=== PATIENT | female | born 1980 | race Caucasian/White ===

== ENCOUNTER 2017-01-29 15:58 | Outpatient (CLI) | payer OTHER ==
--- NOTE | 2017-01-29 17:07 | Non Stress Test Report ---
Non Stress Test Datetime Report Generated by CPN: 01/29/2017 17:06 DEMOGRAPHIC EGA NST: 38.3 INDICATION Indication for Study: Ordered by Provider MONITORING Monitor Explained: Monitor Explained; Test Explained; Patient Verbalized Understanding Time on Monitor: 01/29/2017 15:49 Time off Monitor: 01/29/2017 17:00 NST Duration: 71 NST INTERVENTIONS NST Interventions: PO Hydration; Reposition Patient Physician Notified NST: H Kurt CNM BABY A: [id number] BABY A Movement : Present Contraction Frequency : irreg Accelerations : 15X15 Decelerations : None Variability : Moderate 6-25bpm NST Review: Meets Criteria for Reactive NST NST Review and Verified By : Belinda Bellavamadhu RNC NST Results: Reactive NST REPORT Report Trigger: Send Report
--- NOTE | 2017-01-29 19:09 | L&D Discharge Summary ---
OB Discharge Summary Datetime Report Generated by CPN: 01/29/2017 19:09 DISCHARGE DIAGNOSIS Number of Babies in Womb: 1 Parity: 6
--- NOTE | 2017-01-29 22:46 | L&D Discharge Summary ---
OB Discharge Summary Datetime Report Generated by CPN: 01/29/2017 22:45 DISCHARGE DIAGNOSIS Gestation: 38.3 Number of Babies in Womb: 1 Parity: 6
--- NOTE | 2017-01-29 22:46 | L&D General Admission ---
General Admit Datetime Report Generated by CPN: 01/29/2017 22:45 INFORMATION Patient Age: 36 (11/17/2016 08:50:QS system process) EDC: 02/09/2017 00:00 (01/29/2017 15:59:Tia Vannessae, RNC) : 9 (01/29/2017 15:59:Tia Vannessae, RNC) Para: 6 (01/29/2017 15:59:Tia Bellavance, RNC) Term: 5 (01/29/2017 15:59:Tia Bellavance, RNC) : 1 (01/29/2017 15:59:Tia Belldalence, RNC) Spontaneous Abortions: 3 (01/29/2017 15:59:Tia Belldalence, RNC) Induced Abortions: 0 (01/29/2017 15:59:Tia Belldalence, RNC) Livin (01/29/2017 15:59:Tia Vannessae, RNC) Cesareans: 0 (01/29/2017 15:59:Tia Bellavance, RNC) VBACs: 0 (01/29/2017 15:59:Tia Bellavance, RNC) Ectopic: 0 (01/29/2017 15:59:Tia Bellavance, RNC) Multiple Births: 1 (01/29/2017 15:59:Tia Bellavance, RNC) Baby, Number in Womb: 1 (01/29/2017 15:59:Tia Bellavance, RNC) CARE Primary Electromechanical Inspector: [facility] (01/29/2017 15:59:Tia Bellavance, RNC) Prepregnancy Weight (lb): 128 (01/29/2017 15:59:Tia Bellavance, RNC) Prepregnancy Weight (kg): 58.2 (01/29/2017 15:59:QS system process) Height (in): 66 (01/29/2017 17:08:QS system process) ALLERGIES Medication Allergies: No Known Allergies (12/03/2014) (11/17/2016 08:50:QS system process) DEMOGRAPHICS Address: [facility] [place] [address] (11/17/2016 08:50:QS system process) Zipcode: [address] (11/17/2016 08:50:QS system process) Home (11/17/2016 08:50:QS system process) SSN: [id number] (11/17/2016 08:50:QS system process) Next of Kin Name: JONA TAMAYO (01/29/2017 15:58:QS system process) Next of Kin Name: ADWOA GABI (11/17/2016 08:50:QS system process) Next of Kin (01/29/2017 15:58:QS system process) Next of Kin (11/17/2016 08:50:QS system process) Next of Kin Relationship: OR (01/29/2017 15:58:QS system process) Next of Kin Relationship: SPO (11/17/2016 08:50:QS system process) Date of : 1980 (11/17/2016 08:50:QS system process) Marital Status: (11/17/2016 08:50:QS system process) Sex: Female (11/17/2016 08:50:QS system process) Race: (11/17/2016 08:50:QS system process) Ethnicity: Non- or (11/17/2016 08:50:QS system process) Tenriism: None (11/17/2016 08:50:QS system process)
--- NOTE | 2017-01-30 04:46 | L&D General Admission ---
General Admit Datetime Report Generated by CPN: 01/30/2017 04:45 INFORMATION Patient Age: 36 (11/17/2016 08:50:QS system process) EDC: 02/09/2017 00:00 (01/29/2017 15:59:Tia Vannessae, RNC) : 9 (01/29/2017 15:59:Tia Vannessae, RNC) Para: 6 (01/29/2017 15:59:Tia Bellavance, RNC) Term: 5 (01/29/2017 15:59:Tia Bellavance, RNC) : 1 (01/29/2017 15:59:Tia Belldalence, RNC) Spontaneous Abortions: 3 (01/29/2017 15:59:Tia Belldalence, RNC) Induced Abortions: 0 (01/29/2017 15:59:Tia Belldalence, RNC) Livin (01/29/2017 15:59:Tia Vannessae, RNC) Cesareans: 0 (01/29/2017 15:59:Tia Bellavance, RNC) VBACs: 0 (01/29/2017 15:59:Tia Bellavance, RNC) Ectopic: 0 (01/29/2017 15:59:Tia Bellavance, RNC) Multiple Births: 1 (01/29/2017 15:59:Tia Bellavance, RNC) Baby, Number in Womb: 1 (01/29/2017 15:59:Tia Bellavance, RNC) CARE Primary Water And Fire Technician: [facility] (01/29/2017 15:59:Tia Bellavance, RNC) Prepregnancy Weight (lb): 128 (01/29/2017 15:59:Tia Bellavance, RNC) Prepregnancy Weight (kg): 58.2 (01/29/2017 15:59:QS system process) Height (in): 66 (01/29/2017 17:08:QS system process) ALLERGIES Medication Allergies: No Known Allergies (12/03/2014) (11/17/2016 08:50:QS system process) DEMOGRAPHICS Address: [facility] [place] [address] (11/17/2016 08:50:QS system process) Zipcode: [address] (11/17/2016 08:50:QS system process) Home (11/17/2016 08:50:QS system process) SSN: [id number] (11/17/2016 08:50:QS system process) Next of Kin Name: JONA TAMAYO (01/29/2017 15:58:QS system process) Next of Kin Name: ADWOA GABI (11/17/2016 08:50:QS system process) Next of Kin (01/29/2017 15:58:QS system process) Next of Kin (11/17/2016 08:50:QS system process) Next of Kin Relationship: OR (01/29/2017 15:58:QS system process) Next of Kin Relationship: SPO (11/17/2016 08:50:QS system process) Date of : 1980 (11/17/2016 08:50:QS system process) Marital Status: (11/17/2016 08:50:QS system process) Sex: Female (11/17/2016 08:50:QS system process) Race: (11/17/2016 08:50:QS system process) Ethnicity: Non- or (11/17/2016 08:50:QS system process) Roman Catholic: None (11/17/2016 08:50:QS system process)
--- NOTE | 2017-01-30 04:46 | L&D Admission Assessment ---
LD ADM ASMT Datetime Report Generated by CPN: 01/30/2017 04:45 WEIGHT Weight (lb): 172 (01/29/2017 17:08:QS system process) Weight (kg): 78.2 (01/29/2017 17:08:QS system process) Total Wt Gain (lb): 44 (01/29/2017 17:08:QS system process) Wt Gain (kg): 19.8 (01/29/2017 17:08:QS system process)
--- NOTE | 2017-01-30 04:46 | L&D Discharge Summary ---
OB Discharge Summary Datetime Report Generated by CPN: 01/30/2017 04:45 DISCHARGE DIAGNOSIS Gestation: 38.3 Number of Babies in Womb: 1 Parity: 6
--- NOTE | 2017-01-30 10:46 | L&D General Admission ---
General Admit Datetime Report Generated by CPN: 01/30/2017 10:45 INFORMATION Patient Age: 36 (11/17/2016 08:50:QS system process) EDC: 02/09/2017 00:00 (01/29/2017 15:59:Tia Vannessae, RNC) : 9 (01/29/2017 15:59:Tia Vannessae, RNC) Para: 6 (01/29/2017 15:59:Tia Bellavance, RNC) Term: 5 (01/29/2017 15:59:Tia Bellavance, RNC) : 1 (01/29/2017 15:59:Tia Belldalence, RNC) Spontaneous Abortions: 3 (01/29/2017 15:59:Tia Belldalence, RNC) Induced Abortions: 0 (01/29/2017 15:59:Tia Belldalence, RNC) Livin (01/29/2017 15:59:Tia Vannessae, RNC) Cesareans: 0 (01/29/2017 15:59:Tia Bellavance, RNC) VBACs: 0 (01/29/2017 15:59:Tia Bellavance, RNC) Ectopic: 0 (01/29/2017 15:59:Tia Bellavance, RNC) Multiple Births: 1 (01/29/2017 15:59:Tia Bellavance, RNC) Baby, Number in Womb: 1 (01/29/2017 15:59:Tia Bellavance, RNC) CARE Primary Dog Hair Clipper: [facility] (01/29/2017 15:59:Tia Bellavance, RNC) Prepregnancy Weight (lb): 128 (01/29/2017 15:59:Tia Bellavance, RNC) Prepregnancy Weight (kg): 58.2 (01/29/2017 15:59:QS system process) Height (in): 66 (01/29/2017 17:08:QS system process) ALLERGIES Medication Allergies: No Known Allergies (12/03/2014) (11/17/2016 08:50:QS system process) DEMOGRAPHICS Address: [facility] [place] [address] (11/17/2016 08:50:QS system process) Zipcode: [address] (11/17/2016 08:50:QS system process) Home (11/17/2016 08:50:QS system process) SSN: [id number] (11/17/2016 08:50:QS system process) Next of Kin Name: JONA TAMAYO (01/29/2017 15:58:QS system process) Next of Kin Name: ADWOA GABI (11/17/2016 08:50:QS system process) Next of Kin (01/29/2017 15:58:QS system process) Next of Kin (11/17/2016 08:50:QS system process) Next of Kin Relationship: OR (01/29/2017 15:58:QS system process) Next of Kin Relationship: SPO (11/17/2016 08:50:QS system process) Date of : 1980 (11/17/2016 08:50:QS system process) Marital Status: (11/17/2016 08:50:QS system process) Sex: Female (11/17/2016 08:50:QS system process) Race: (11/17/2016 08:50:QS system process) Ethnicity: Non- or (11/17/2016 08:50:QS system process) Samaritan: None (11/17/2016 08:50:QS system process)
--- NOTE | 2017-01-30 10:46 | L&D Admission Assessment ---
LD ADM ASMT Datetime Report Generated by CPN: 01/30/2017 10:45 WEIGHT Weight (lb): 172 (01/29/2017 17:08:QS system process) Weight (kg): 78.2 (01/29/2017 17:08:QS system process) Total Wt Gain (lb): 44 (01/29/2017 17:08:QS system process) Wt Gain (kg): 19.8 (01/29/2017 17:08:QS system process)
--- NOTE | 2017-01-30 10:46 | L&D Discharge Summary ---
OB Discharge Summary Datetime Report Generated by CPN: 01/30/2017 10:45 DISCHARGE DIAGNOSIS Gestation: 38.3 Number of Babies in Womb: 1 Parity: 6
--- NOTE | 2017-01-30 16:46 | L&D Discharge Summary ---
OB Discharge Summary Datetime Report Generated by CPN: 01/30/2017 16:45 DISCHARGE DIAGNOSIS Gestation: 38.3 Number of Babies in Womb: 1 Parity: 6
--- NOTE | 2017-01-30 16:46 | L&D General Admission ---
General Admit Datetime Report Generated by CPN: 01/30/2017 16:45 INFORMATION Patient Age: 36 (11/17/2016 08:50:QS system process) EDC: 02/09/2017 00:00 (01/29/2017 15:59:Tia Vannessae, RNC) : 9 (01/29/2017 15:59:Tia Vannessae, RNC) Para: 6 (01/29/2017 15:59:Tia Bellavance, RNC) Term: 5 (01/29/2017 15:59:Tia Bellavance, RNC) : 1 (01/29/2017 15:59:Tia Belldalence, RNC) Spontaneous Abortions: 3 (01/29/2017 15:59:Tia Belldalence, RNC) Induced Abortions: 0 (01/29/2017 15:59:Tia Belldalence, RNC) Livin (01/29/2017 15:59:Tia Vannessae, RNC) Cesareans: 0 (01/29/2017 15:59:Tia Bellavance, RNC) VBACs: 0 (01/29/2017 15:59:Tia Bellavance, RNC) Ectopic: 0 (01/29/2017 15:59:Tia Bellavance, RNC) Multiple Births: 1 (01/29/2017 15:59:Tia Bellavance, RNC) Baby, Number in Womb: 1 (01/29/2017 15:59:Tia Bellavance, RNC) CARE Primary Electrical System Specialist: [facility] (01/29/2017 15:59:Tia Bellavance, RNC) Prepregnancy Weight (lb): 128 (01/29/2017 15:59:Tia Bellavance, RNC) Prepregnancy Weight (kg): 58.2 (01/29/2017 15:59:QS system process) Height (in): 66 (01/29/2017 17:08:QS system process) ALLERGIES Medication Allergies: No Known Allergies (12/03/2014) (11/17/2016 08:50:QS system process) DEMOGRAPHICS Address: [facility] [place] [address] (11/17/2016 08:50:QS system process) Zipcode: [address] (11/17/2016 08:50:QS system process) Home (11/17/2016 08:50:QS system process) SSN: [id number] (11/17/2016 08:50:QS system process) Next of Kin Name: JONA TAMAYO (01/29/2017 15:58:QS system process) Next of Kin Name: ADWOA GABI (11/17/2016 08:50:QS system process) Next of Kin (01/29/2017 15:58:QS system process) Next of Kin (11/17/2016 08:50:QS system process) Next of Kin Relationship: OR (01/29/2017 15:58:QS system process) Next of Kin Relationship: SPO (11/17/2016 08:50:QS system process) Date of : 1980 (11/17/2016 08:50:QS system process) Marital Status: (11/17/2016 08:50:QS system process) Sex: Female (11/17/2016 08:50:QS system process) Race: (11/17/2016 08:50:QS system process) Ethnicity: Non- or (11/17/2016 08:50:QS system process) Protestant: None (11/17/2016 08:50:QS system process)
--- NOTE | 2017-01-30 22:46 | L&D Discharge Summary ---
OB Discharge Summary Datetime Report Generated by CPN: 01/30/2017 22:45 DISCHARGE DIAGNOSIS Gestation: 38.3 Number of Babies in Womb: 1 Parity: 6
--- NOTE | 2017-01-31 04:46 | L&D Discharge Summary ---
OB Discharge Summary Datetime Report Generated by CPN: 01/31/2017 04:45 DISCHARGE DIAGNOSIS Gestation: 38.3 Number of Babies in Womb: 1 Parity: 6
--- NOTE | 2017-01-31 10:46 | L&D Discharge Summary ---
OB Discharge Summary Datetime Report Generated by CPN: 01/31/2017 10:45 DISCHARGE DIAGNOSIS Gestation: 38.3 Number of Babies in Womb: 1 Parity: 6
== END 2017-01-29 17:09 | disposition home or self-care (01) ==
LOC: LC 15:58
PROVIDERS: ATTEND Obstetrics & Gynecology
PROC: 4A1HXCZ Monitoring of Products of Conception, Cardiac Rate, External Approach (ICD-10-PCS; principal; 2017-01-29)
DX: O47.1 False labor at or after 37 completed weeks of gestation (principal); O09.523 Supervision of elderly multigravida, third trimester; Z3A.38 38 weeks gestation of pregnancy
CPT/HCPCS: 59025

== ENCOUNTER 2017-01-31 14:08 | Inpatient (IN) | payer OTHER ==
[2017-01-31 15:17] LABS: ABSOLUTE EOSINOPHILS # (AUTO) 0.1 10^3/uL (0.0-0.6); ABSOLUTE LYMPHOCYTES (AUTO) 0.8 10^3/uL (0.5-4.7); ABSOLUTE MONOCYTES (AUTO) 0.7 10^3/uL (0.1-1.4); ABSOLUTE NEUT (AUTO) 7.6 10^3/uL (1.7-8.2); BASOPHILS % (AUTO) 0.3 % (0-2); EOSINOPHILS % (AUTO) 0.8 % (0-6); HEMATOCRIT 33.1 % (36.0-47.0); HGB HCT DIFFERENCE -0.1; MEAN CORPUSCULAR HEMOGLOBIN 25.6 pg (27.0-33.4); MEAN CORPUSCULAR HGB CONC 33.2 g/dL (32.0-36.0); MEAN CORPUSCULAR VOLUME 77 fl (80-97); MONOCYTES % (AUTO) 7.8 % (3-13); RED CELL DISTRIBUTION WIDTH 14.9 % (11.5-14.0); SEGMENTED NEUTROPHILS % (AUTO) 82.1 % (42-78); WHITE BLOOD COUNT 9.3 10^3/uL (4.0-10.5)
[2017-01-31 15:22] LABS: APPEARANCE,URINE SLIGHTLY-CLOUDY; BILIRUBIN,URINE NEGATIVE (NEGATIVE); GLUCOSE, URINE NEGATIVE (NEGATIVE); KETONES,URINE NEGATIVE (NEGATIVE); LEUKOCYTE ESTERASE,URINE LARGE (NEGATIVE); NITRITE,URINE NEGATIVE (NEGATIVE); PROTEIN,URINE NEGATIVE (NEGATIVE); URINE SPECIFIC GRAVITY 1.006; UROBILINOGEN,URINE NEGATIVE mg/dL (<2.0)
[2017-01-31 15:43] LABS: URINE BARBITURATES SCREEN NEGATIVE; URINE METHADONE SCREEN NEGATIVE; URINE OPIATES LOW NEGATIVE; URINE PHENCYCLIDINE SCREEN NEGATIVE
[2017-01-31] MEDS ORDERED: OXYTOCIN/NORMAL SALINE 20 UNIT/1,000 ML RTUINJ ONE ×2 (16:33→17:59)
[2017-01-31] MEDS ORDERED: FENTANYL CITRATE INJ/PF 100 MCG/2 ML AMPUL ONE (17:15)
[2017-01-31] MEDS ORDERED: PHENYLEPHRINE HCL INJ/PF 10 MG/1 ML SDV ONE (17:16)
[2017-01-31] MEDS ORDERED: FENTANYL/BUPIVACAINE/NS/PF 200 MCG/100 ML RTUINJ EPI ONE (17:16)
[2017-01-31] MEDS ORDERED: BUPIVACAINE HCL 0.25 % INJ/PF (2.5 MG/1 ML) 30 ML VIAL ONE (17:16)
[2017-01-31] MEDS ORDERED: EPHEDRINE SULFATE INJ 50 MG/1 ML AMPULE ONE (17:16)
[2017-01-31] MEDS ORDERED: LIDOCAINE 1% INJ-PF (10 MG/ML) 30 ML SDV ONE (17:59)
[2017-01-31] MEDS ORDERED: MISOPROSTOL 0.2 MG TABLET ONE (17:59)
--- NOTE | 2017-01-31 18:02 | L&D Current Admission ---
Current Admit Datetime Report Generated by CPN: 01/31/2017 18:00 ADMISSION INFORMATION Current Admit Date/Time: 01/31/2017 15:14 (01/31/2017 15:09:Ruthy Nava RN) Reason for Admission: Rupture of Membranes (01/31/2017 15:09:Ruthy Nava RN) Chief Complaint: Suspected Rupture of Membranes (01/31/2017 15:16:Ruthy Nava RN) EGA per Dates: 38.5 (01/31/2017 15:09:QS system process) Method of Arrival: Ambulatory (01/31/2017 15:09:Ruthy Nava RN) Admitted From: Home (01/31/2017 15:09:Ruthy Nava RN) Records Available: Yes (01/31/2017 15:09:Ruthy Nava RN) General Admission Information: Reviewed (01/31/2017 15:09:Ruthy Nava RN) BELONGINGS/ADVANCED DIRECTIVES Valuables/Personal Effects: Purse/Wallet; Cell Phone; Contact Lenses (01/31/2017 15:09:Ruthy Nava RN) Disposition of Belongings: Kept with Patient (01/31/2017 15:09:Ruthy Nava RN) Advance Direct for Healthcare: No, and Wants No Information (01/31/2017 15:09:Ruthy Nava RN) Durable Power of Relocation Services Specialist: No (01/31/2017 15:09:Ruthy Nava RN) Living Will: No (01/31/2017 15:09:Ruthy Nava RN) Organ Donor: Yes (01/31/2017 15:09:Ruthy Nava RN) Pt Rights Information Given: Yes (01/31/2017 15:09:Ruthy Nava RN) Pt Understands Pt Rights: Yes (01/31/2017 15:09:Ruthy Nava RN) LEARNING ASSESSMENT Knowledge Level: Understands L_D Process; Understands Care Activities (01/31/2017 15:09:Ruthy Nava RN) Barriers to Learning: Visual Deficit (01/31/2017 15:09:Ruthy Nava RN) Learning Readiness: Motivated (01/31/2017 15:09:Ruthy Nava RN) Learns Best By: 1 to 1 Instruction; Reading (01/31/2017 15:09:Ruthy Nava RN) Learning Needs: Labor and Delivery Process; Pain Management; Symptoms to Report; Treatment Plan; Medication; Diagnosis; Nutrition; Equipment; Infant Care (01/31/2017 15:09:Ruthy Nava RN) DOMESTIC VIOLANCE SCREENING Dom Viol Threatened/Hurt: No (01/31/2017 15:09:Ruthy Nava RN) Hx of Abuse/Neglect past 2yrs: No (01/31/2017 15:09:Ruthy Nava RN) Feel Unsafe Going Home: No (01/31/2017 15:09:Ruthy Nava RN) Addt'l Observ Indicating Abuse: No (01/31/2017 15:09:Ruthy Nava RN) Reason Unable to Complete Screen: N/A, Screen Completed (01/31/2017 15:09:Ruthy Nava RN) Considered Personal Harm/Suicide: No (01/31/2017 15:09:Ruthy Nava RN) NUTRITIONAL/FUNCTIONAL SCREENING Problem with Appetite >5 Days: No (01/31/2017 15:09:Ruthy Nava RN) Chew/Swallow Difficulties: No (01/31/2017 15:09:Ruthy Nava RN) Inappropriate Wt Gain/Loss: No (01/31/2017 15:09:Ruthy Nava RN) Presence Skin Breakdown/Ulcer: No (01/31/2017 15:09:Ruthy Nava RN) Special Diet: No (01/31/2017 15:09:Ruthy Nava RN) Pt Requests Language Specialist Visit: No (01/31/2017 15:09:Ruthy Nava RN) Hx of Any of the Following?: N/A (01/31/2017 15:09:Ruthy Nava RN) New Diagnosis of: N/A (01/31/2017 15:09:Ruthy Nava RN) Requires Assist w/Ambulation: No (01/31/2017 15:09:Ruthy Nava RN) Uses Assist Device to Ambulate: No (01/31/2017 15:09:Ruthy Nava RN) Pt Requires Help w/ADL's: No (01/31/2017 15:09:Ruthy Nava RN)
--- NOTE | 2017-01-31 18:02 | L&D General Admission ---
General Admit Datetime Report Generated by CPN: 01/31/2017 18:00 INFORMATION Patient Age: 36 (11/17/2016 08:50:QS system process) EDC: 02/09/2017 00:00 (01/29/2017 15:59:SARIAH Wiggins) : 9 (01/29/2017 15:59:SARIAH Wiggins) Para: 5 (01/29/2017 15:59:Kezia Hayes RN) Term: 4 (01/29/2017 15:59:Kezia Hayes RN) : 1 (01/29/2017 15:59:SARIAH Wiggins) Spontaneous Abortions: 3 (01/29/2017 15:59:SARIAH Wiggins) Induced Abortions: 0 (01/29/2017 15:59:SARIAH Wiggins) Livin (01/29/2017 15:59:SARIAH Wiggins) Cesareans: 0 (01/29/2017 15:59:Tia Bellavance, RNC) VBACs: 0 (01/29/2017 15:59:Tia Bellavance, RNC) Ectopic: 0 (01/29/2017 15:59:Tia Bellavance, RNC) Multiple Births: 1 (01/29/2017 15:59:Tia Bellavance, RNC) Baby, Number in Womb: 1 (01/29/2017 15:59:Tia Bellavance, RNC) CARE Primary Sales Representative Wire Rope: [facility] (01/29/2017 15:59:Tia Bellavance, RNC) Adequate Care: Yes (01/29/2017 15:59:Desirae Hendrix RN) Prepregnancy Weight (lb): 128 (01/29/2017 15:59:Tia Bellavance, RNC) Prepregnancy Weight (kg): 58.2 (01/29/2017 15:59:QS system process) Height (in): 65 (01/31/2017 14:35:QS system process) ALLERGIES Medication Allergy: No (01/29/2017 15:59:Ruthy Nava RN) Medication Allergies: No Known Allergies (01/31/2017) (01/31/2017 14:35:QS system process) Latex Allergy: No Latex Allergies (01/29/2017 15:59:Ruthy Nava RN) Food Allergies: none (01/29/2017 15:59:Ruthy Nava RN) Environmental Allergies: none (01/29/2017 15:59:Ruthy Nava RN) COMMUNICATION Primary Language: Azeri (01/29/2017 15:59:Desirae Hendrix RN) Medical Tx Preferred Language: Azeri (Annotations: Data stored by [facility] on behalf of user) (01/29/2017 15:59:Shanon Koehler RN) Azeri Communication Ability: Speaks Azeri; Reads Azeri (01/29/2017 15:59:Ruthy Nava RN) Communication Barrier(s): None (01/29/2017 15:59:Shanon Koehler RN) DEMOGRAPHICS Address: [address] [place] [id number] (11/17/2016 08:50:QS system process) Zipcode: [address] (11/17/2016 08:50:QS system process) Home (11/17/2016 08:50:QS system process) SSN: [id number] (11/17/2016 08:50:QS system process) Next of Kin Name: JONA TAMAYO (01/29/2017 15:58:QS system process) Next of Kin (01/29/2017 15:58:QS system process) Next of Kin Relationship: OR (01/29/2017 15:58:QS system process) Date of : 1980 (11/17/2016 08:50:QS system process) Marital Status: (11/17/2016 08:50:QS system process) Sex: Female (11/17/2016 08:50:QS system process) Race: (11/17/2016 08:50:QS system process) Ethnicity: Non- or (11/17/2016 08:50:QS system process) Islam: None (11/17/2016 08:50:QS system process) DRUG AND ALCOHOL USE Alcohol: No (01/29/2017 15:59:Ruthy Nava RN) Cigarettes: Never Smoker. [id number] (01/29/2017 15:59:Ruthy Nava RN) Marijuana: No (01/29/2017 15:59:Ruthy aNva RN) Cocaine: No (01/29/2017 15:59:Ruthy Nava RN) Other Illicit Drugs: No (01/29/2017 15:59:Ruthy Nava RN) VACCINE HISTORY Influenza Vaccine: No (01/29/2017 15:59:Ruthy Nava RN) Pneumococcal Vaccine: No (01/29/2017 15:59:Ruthy Nava RN) Tetanus Vaccine: No (01/29/2017 15:59:Ruthy Nava RN) Tdap Vaccine: Yes (01/29/2017 15:59:Ruthy Nava RN) Hepatitis B Vaccine: No (01/29/2017 15:59:Ruthy Nava RN) Water Resource Consultant: [facility] (01/29/2017 15:59:Ruthy Nava RN) Feeding Preference: Breast (01/29/2017 15:59:Ruthy Nava RN) Benefit of Breast Feed Discussed: Yes (01/29/2017 15:59:Ruthy Nava RN) Circumcision: Yes (01/29/2017 15:59:Ruthy Nava RN) Classes Attended: No (01/29/2017 15:59:Ruthy Nava RN) Tubal Ligation: No (01/29/2017 15:59:Ruthy Nava RN) Tubal Authorization Signed: N/A (01/29/2017 15:59:Ruthy Nava RN) Consent: N/A (01/29/2017 15:59:Ruthy aNva RN) Consent Signed: N/A (01/29/2017 15:59:Ruthy Nava RN) Pain Management Plans: Epidural (01/29/2017 15:59:Ruthy Nava RN) Plans for Labor and Delivery: Plan (01/29/2017 15:59:Ruthy Nava RN) Support Person: Carline Wadsworth (01/29/2017 15:59:Ruthy Nava RN) Support Person Relationship: Other (01/29/2017 15:59:Ruthy Nava RN) Cultural/Spritual Practice: No (01/29/2017 15:59:Ruthy Nava RN) Spir/Cult Dietary Needs: No (01/29/2017 15:59:Ruthy Nava RN) LIVING SITUATION/DISCHARGE PLAN Living Arrangements: House (01/29/2017 15:59:Ruthy Nava RN) Adequate Access to:: Electric; Heat; Refrigeration; Plumbing/Running water; Phone; Transportation (01/29/2017 15:59:Ruthy Nava RN) WIC Program: No (01/29/2017 15:59:Ruthy Nava RN) Discharge Precision Lens Polisher Person: Carline Wadsworth (01/29/2017 15:59:Ruthy Nava RN) Person to Help after Discharge: Carline Wadsworth (01/29/2017 15:59:Ruthy Nava RN) Currently Using Commun Resources: No (01/29/2017 15:59:Ruthy Nava RN) Outside Agency/Agricultural Engineering Technicians: No (01/29/2017 15:59:Ruthy Nava RN) Car Seat for Discharge: No (01/29/2017 15:59:Ruthy Nava RN) Adoption Requested: No (01/29/2017 15:59:Ruthy Nava RN) Pt Contact w/ Post : N/A (01/29/2017 15:59:Ruthy Nava RN) LABS Blood Type: O Positive (01/29/2017 15:59:Desirae Hendrix RN) Antibody Screen: Negative (01/29/2017 15:59:Desirae Hendrix RN) Rho(G) this : Not Applicable (01/29/2017 15:59:Kezia Hayes RN) Hemoglobin: 11.0 L (01/31/2017 15:04:QS system process) Hematocrit: 33.1 L (01/31/2017 15:04:QS system process) MCV: 77 L (01/31/2017 15:04:QS system process) Group Beta Strep: Negative (01/29/2017 15:59:Desirae Hendrix RN) Gonorrhea: Negative (01/29/2017 15:59:Desirae Hendrix RN) Chlamydia: Negative (01/29/2017 15:59:Desirae Hendrix RN) RPR/VDRL: Nonreactive (01/29/2017 15:59:Desirae Hendrix RN) Hepatitis B: Negative (01/29/2017 15:59:Ruthy Nava RN) Rubella: Immune (01/29/2017 15:59:Desirae Hendrix RN) OB/PREVIOUS HISTORY Previous Procedures: Ultrasound; NST; BPP (01/29/2017 15:59:Ruthy Nava RN) Current Procedures: Ultrasound; NST (01/29/2017 15:59:Ruthy Nava RN) History of Previous : No (01/29/2017 15:59:Ruthy Nava RN) History of Gestational Diabetes: No (01/29/2017 15:59:Ruthy Nava RN) History of PIH: No (01/29/2017 15:59:Ruthy Nava RN) History of Incompetent Cervix: No (01/29/2017 15:59:Ruthy Nava RN) History of Placenta Previa/Abrup: No (01/29/2017 15:59:Ruthy Nava RN) History of Macrosomia: No (01/29/2017 15:59:Ruthy Nava RN) History of IUGR: No (01/29/2017 15:59:Ruthy Nava RN) History of Hemorrhage: No (01/29/2017 15:59:Ruthy Nava RN) History of Loss/Stillborn: No (01/29/2017 15:59:Ruthy Nava RN) History of : No (01/29/2017 15:59:Ruthy Nava RN) History of D (Rh) Sensitization: No (01/29/2017 15:59:Ruthy Nava RN) History Recurrent Loss/Stillborn: No (01/29/2017 15:59:Ruthy Nava RN) History Depression/PP Depression: No (01/29/2017 15:59:Ruthy Nava RN) History of Uterine Anomaly/AYAZ: No (01/29/2017 15:59:Ruthy Nava RN) History of Infertility: No (01/29/2017 15:59:Ruthy Nava RN) History of ART Treatment: No (01/29/2017 15:59:Ruthy Nava RN) History of AYAZ: No (01/29/2017 15:59:Ruthy Nava RN) Comments Obstetrical History: G1- 2006 G2- 2007 G3- SAB 2008 G4- SAB 2010 G5- 2010 G6- SAB 2011 G7- 2012 G8- 2014 G9- CURRENT (01/29/2017 15:59:Ruthy Nava RN) MEDICAL HISTORY Med Hx Diabetes: No (01/29/2017 15:59:Ruthy Nava RN) Med Hx Hypertension: No (01/29/2017 15:59:Ruthy Nava RN) Med Hx Heart Disease: No (01/29/2017 15:59:Ruthy Nava RN) Med Hx Autoimmune Disorder: No (01/29/2017 15:59:Ruthy Nava RN) Med Hx Kidney Disease/UTI: No (01/29/2017 15:59:Ruthy Nava RN) Med Hx Neurologic/Epilepsy: No (01/29/2017 15:59:Ruthy Nava RN) Med Hx Psychiatric Disorders: No (01/29/2017 15:59:Ruthy Nava RN) Med Hx Hepatitis/Liver Disease: No (01/29/2017 15:59:Ruthy Nava RN) Med Hx Varicosities/Phlebitis: No (01/29/2017 15:59:Ruthy Nava RN) Med Hx Thyroid Dysfunction: No (01/29/2017 15:59:Ruthy Nava RN) Med Hx Trauma/Violence: No (01/29/2017 15:59:Ruthy Nava RN) Med Hx Blood Transfusion: Yes (01/29/2017 15:59:Kezia Hayes RN) Med Hx Pulmonary (Asthma,TB): No (01/29/2017 15:59:Ruthy Nava RN) Med Hx Breast: No (01/29/2017 15:59:Ruthy Nava RN) Med Hx HARDWARE INSTALLER Surgery: No (01/29/2017 15:59:Ruthy Nava RN) Med Hx Hospitalization/Surgery: Yes (01/29/2017 15:59:Kezia Hayes RN) Med Hx Anesthetic Complications: No (01/29/2017 15:59:Ruthy Nava RN) Med Hx Abnormal Pap Smear: No (01/29/2017 15:59:Ruthy Nava RN) Other Medical Diseases: No (01/29/2017 15:59:Ruthy Nava RN) Med Hx Significant Family Hx: No (01/29/2017 15:59:Ruthy Nava RN) Details of Med/Surg Hx: childbirth; blood transfusion after twin delivery. (01/29/2017 15:59:Kezia Hayes RN) INFECTIOUS HISTORY Inf Hx Gonorrhea: No (01/29/2017 15:59:Ruthy Nava RN) Inf Hx Chlamydia: No (01/29/2017 15:59:Ruthy Nava RN) Inf Hx Syphilis: No (01/29/2017 15:59:Ruthy Nava RN) Inf Hx HIV/AIDS: No (01/29/2017 15:59:Ruthy Nava RN) Inf Hx Human Papilloma Virus: No (01/29/2017 15:59:Ruthy Nava RN) Inf Hx Pt/Partner Genital Herpes: No (01/29/2017 15:59:Ruthy aNva RN) Inf Hx Tuberculosis/Exposure: No (01/29/2017 15:59:Ruthy Nava RN) Inf Hx Hepatitis B,C: No (01/29/2017 15:59:Ruthy Nava RN) Inf Hx Rash or Viral Illness: No (01/29/2017 15:59:Ruthy Nava RN) GENETIC HISTORY Gen Hx Age >=35 at DELON: No (01/29/2017 15:59:Ruthy Nava RN) Gen Hx Thalassemia: No (01/29/2017 15:59:Ruthy Nava RN) Gen Hx Congenital Heart Defect: No (01/29/2017 15:59:Ruthy Nava RN) Gen Hx Neural Tube Defect: No (01/29/2017 15:59:Ruthy Nava RN) Gen Hx Down's Syndrome: No (01/29/2017 15:59:Ruthy Nava RN) Gen Hx Mick-Sachs: No (01/29/2017 15:59:Ruthy Nava RN) Gen Hx Víctor: No (01/29/2017 15:59:Ruthy Nava RN) Gen Hx Familial Dysautonomia: No (01/29/2017 15:59:Ruthy Nava RN) Gen Hx Sickle Cell Disease/Trait: No (01/29/2017 15:59:Ruthy Nava RN) Gen Hx Hemophilia/Blood Disorder: No (01/29/2017 15:59:Ruthy Nava RN) Gen Hx Muscular Dystrophy: No (01/29/2017 15:59:Ruthy Nava RN) Gen Hx Cystic Fibrosis: No (01/29/2017 15:59:Ruthy Nava RN) Gen Hx Huntingtons Chorea: No (01/29/2017 15:59:Ruthy Nava RN) Gen Hx Mental Retardation/Autism: No (01/29/2017 15:59:Ruthy Nava RN) Gen Hx Tested for Fragile X: No (01/29/2017 15:59:Ruthy Nava RN) Gen Hx Other Inher/Chromosomal: No (01/29/2017 15:59:Ruthy Nava RN) Gen Hx Maternal Metabolic DO: No (01/29/2017 15:59:Ruthy Nava RN) Gen Hx Pt Father or FOB Defect: No (01/29/2017 15:59:Ruthy Nava RN) Gen Hx Other Genetic History: No (01/29/2017 15:59:Ruthy Nava RN) Gen Hx Drugs/Meds since LMP: No (01/29/2017 15:59:Ruthy Nava RN)
--- NOTE | 2017-01-31 20:00 | L&D Flow Sheet ---
LD Flowsheet Datetime Report Generated by CPN: 01/31/2017 20:00 Datetime: 01/31/2017 19:35 Communication Comments: Pt states she has pressure with contractions, none between contractions. Pt encouraged to let me know when her pressure lasts all the time whether contractions or not. (Kezia Lattibeaudeir, RN) Datetime: 01/31/2017 19:20 NBP Sys/Rafaela/Mean (mmHg): 130 (QS system process) : 80 (QS system process) : 99 (QS system process) Pulse: 95 (QS system process) LaborFlag: Antepartum (QS system process) Datetime: 01/31/2017 19:04 NBP Sys/Rafaela/Mean (mmHg): 129 (QS system process) : 72 (QS system process) : 93 (QS system process) Pulse: 99 (QS system process) LaborFlag: Antepartum (QS system process) Datetime: 01/31/2017 18:50 Pitocin (milliunit): Pitocin Increased to (milliunits) @ 4 (Kezia Lattibeaudeir, RN) Datetime: 01/31/2017 18:49 NBP Sys/Rafaela/Mean (mmHg): 132 (QS system process) : 78 (QS system process) : 98 (QS system process) Pulse: 87 (QS system process) LaborFlag: Antepartum (QS system process) Datetime: 01/31/2017 18:32 NBP Sys/Rafaela/Mean (mmHg): 110 (QS system process) : 58 (QS system process) : 77 (QS system process) Pulse: 88 (QS system process) LaborFlag: Antepartum (QS system process) Datetime: 01/31/2017 18:28 NBP Sys/Rafaela/Mean (mmHg): 122 (QS system process) : 73 (QS system process) : 91 (QS system process) Pulse: 100 (QS system process) LaborFlag: Antepartum (QS system process) Datetime: 01/31/2017 18:23 Dilatation (cm): 4.5 (Kezia Hayes RN) Effacement (%): 70 (Kezia Hayes RN) Station: -1 (Kezia Hayes RN) Exam by: Franko Hayes RN (Kezia Hayes RN) Vaginal Bleeding: None (Kezia Hayes RN) Cervix, Consistency: Soft (Kezia Hayes RN) Cervix, Position: Midposition (Kezia Hayes RN) I/O Interventions: Fleming Cath Inserted (Kezia Hayes RN) Datetime: 01/31/2017 18:22 NBP Sys/Rafaela/Mean (mmHg): 128 (QS system process) : 77 (QS system process) : 95 (QS system process) Pulse: 98 (QS system process) LaborFlag: Antepartum (QS system process) Datetime: 01/31/2017 18:21 NBP Sys/Rafaela/Mean (mmHg): 138 (QS system process) : 66 (QS system process) : 93 (QS system process) Pulse: 102 (QS system process) LaborFlag: Antepartum (QS system process) Datetime: 01/31/2017 18:20 NBP Sys/Rafaela/Mean (mmHg): 125 (QS system process) : 65 (QS system process) : 89 (QS system process) Pulse: 93 (QS system process) LaborFlag: Antepartum (QS system process) Datetime: 01/31/2017 18:19 NBP Sys/Rafaela/Mean (mmHg): 137 (QS system process) : 72 (QS system process) : 97 (QS system process) Pulse: 100 (QS system process) LaborFlag: Antepartum (QS system process) Datetime: 01/31/2017 18:18 NBP Sys/Rafaela/Mean (mmHg): 136 (QS system process) : 64 (QS system process) : 92 (QS system process) Pulse: 100 (QS system process) LaborFlag: Antepartum (QS system process) Datetime: 01/31/2017 18:17 NBP Sys/Rafaela/Mean (mmHg): 133 (QS system process) : 61 (QS system process) : 88 (QS system process) Pulse: 100 (QS system process) LaborFlag: Antepartum (QS system process) Datetime: 01/31/2017 18:16 NBP Sys/Rafaela/Mean (mmHg): 143 (QS system process) : 72 (QS system process) : 98 (QS system process) Pulse: 102 (QS system process) LaborFlag: Antepartum (QS system process) Datetime: 01/31/2017 18:15 NBP Sys/Rafaela/Mean (mmHg): 151 (QS system process) : 78 (QS system process) : 105 (QS system process) Pulse: 96 (QS system process) LaborFlag: Antepartum (QS system process) Datetime: 01/31/2017 18:14 NBP Sys/Rafaela/Mean (mmHg): 134 (QS system process) : 80 (QS system process) : 101 (QS system process) Pulse: 111 (QS system process) LaborFlag: Antepartum (QS system process) Datetime: 01/31/2017 18:13 NBP Sys/Rafaela/Mean (mmHg): 132 (QS system process) : 71 (QS system process) : 95 (QS system process) Pulse: 98 (QS system process) LaborFlag: Antepartum (QS system process) Datetime: 01/31/2017 18:10 NBP Sys/Rafaela/Mean (mmHg): 143 (QS system process) : 72 (QS system process) : 103 (QS system process) Pulse: 97 (QS system process) Pulse: 99 (QS system process) SpO2 (%): 99 (QS system process) LaborFlag: Antepartum (QS system process) Datetime: 01/31/2017 18:09 NBP Sys/Rafaela/Mean (mmHg): 151 (QS system process) : 83 (QS system process) : 107 (QS system process) Pulse: 96 (QS system process) Epidural Procedure: Cath Placed; Loading Dose (Kezia Lattibeaudeir, RN) LaborFlag: Antepartum (QS system process) Datetime: 01/31/2017 18:08 NBP Sys/Rafaela/Mean (mmHg): 132 (QS system process) : 76 (QS system process) : 98 (QS system process) Pulse: 89 (QS system process) LaborFlag: Antepartum (QS system process) Datetime: 01/31/2017 18:07 NBP Sys/Rafaela/Mean (mmHg): 125 (QS system process) : 74 (QS system process) : 94 (QS system process) Pulse: 94 (QS system process) Epidural Procedure: Test Dose (Kezia Lattibeaudeir, RN) LaborFlag: Antepartum (QS system process) Datetime: 01/31/2017 18:05 Pulse: 101 (QS system process) SpO2 (%): 100 (QS system process) LaborFlag: Antepartum (QS system process) Datetime: 01/31/2017 18:04 Anesthesia Comments: Dr. Marroquin at bedside for epidural (Kezia Lattibeaudeir, RN) Datetime: 01/31/2017 17:30 Monitor Mode: External (Kezia Lattibeaudeir, RN) Frequency (min): 2-4 (Kezia Lattibeaudeir, RN) Quality: Moderate to Strong (Kezia Lattibeaudeir, RN) Duration (sec): 60-90 (Kezia Lattibeaudeir, RN) Resting Tone (Palpate): Relaxed (Kezia Lattibeaudeir, RN) Monitor Mode: External US (Kezia Lattibeaudeir, RN) FHR Baseline Rate : 145 (Kezia Lattibeaudeir, RN) Variability: Moderate 6-25 bpm (Kezia Lattibeaudeir, RN) Accelerations: 15X15 (Kezia Lattibeaudeir, RN) Pitocin (milliunit): Pitocin Remains (milliunits) @ 2 (Kezia Lattibeaudeir, RN) Datetime: 01/31/2017 17:24 Communication Comments: Called Dr. Marroquin and informed her of pt's request for epidural (Kezia Lattibeaudeir, RN) Datetime: 01/31/2017 17:20 I/O Interventions: Up to BR (Kezia Lattibeaudeir, RN) Datetime: 01/31/2017 17:13 Procedure Verify: Correct Patient Identity; Correct Side and Site are Marked; Accurate Procedure Consent Form; Agreement on Procedure to be Done; Relevant Images and Results are Properly Labeled and Displayed (Kezia Hayes RN) Anesthesia Plans: Epidural (Kezia Hayes RN) Anesthesia Comments: Pt requested epidural, LR bolus started. (Kezia Hayes RN) Datetime: 01/31/2017 17:02 Communication Comments: REPORT GIVEN AND CARE RELINQUISHED AT THIS TIME (Ruthy Nava RN) Datetime: 01/31/2017 16:46 NBP Sys/Rafaela/Mean (mmHg): 152 (QS system process) : 91 (QS system process) : 110 (QS system process) Pulse: 112 (QS system process) Respirations: 18 (Ruthy Nava RN) LaborFlag: Antepartum (QS system process) Datetime: 01/31/2017 16:38 Pitocin (milliunit): Pitocin Started (milliunits) @ 2 (Ruthy Nava RN) Pitocin (milliunit): Pitocin 20 Units in 1000ml NS; Pitocin (units) in 1000ml NS (Ruthy Nava RN) Datetime: 01/31/2017 16:30 Monitor Mode: External (Ruthy Nava RN) Frequency (min): 3-5 (Ruthy Nava RN) Quality: Mild/Moderate (Ruthy Nava RN) Duration (sec): 50-80 (Ruthy Nava RN) Resting Tone (Palpate): Relaxed (Ruthy Nava RN) Monitor Mode: External US (Ruthy Nava RN) FHR Baseline Rate : 145 (Ruthy Halsmer, RN) FHR Baseline Changes: No Baseline Change (Ruthy Halsmer, RN) Variability: Moderate 6-25 bpm (Ruthy Halsmer, RN) Accelerations: 15X15 (Ruthy Halsmer, RN) Decelerations: None (Ruthy Halsmer, RN) Datetime: 01/31/2017 16:26 Communication Comments: K. XI, CNM AT BEDSIDE DISCUSSING POC WITH PT (Ruthy Halsmer, RN) Datetime: 01/31/2017 16:03 I/O Interventions: Up to BR (Ruthy Halsmer, RN) Datetime: 01/31/2017 16:00 Monitor Mode: External (Ruthy Halsmer, RN) Frequency (min): 3-5 (Ruthy Halsmer, RN) Quality: Mild/Moderate (Ruthy Halsmer, RN) Duration (sec): 40-80 (Ruthy Halsmer, RN) Resting Tone (Palpate): Relaxed (Ruthy Halsmer, RN) Monitor Mode: External US (Ruthy Halsmer, RN) FHR Baseline Rate : 140 (Ruthy Halsmer, RN) FHR Baseline Changes: No Baseline Change (Ruthy Halsmer, RN) Variability: Moderate 6-25 bpm (Ruthy Halsmer, RN) Accelerations: 15X15 (Ruthy Halsmer, RN) Decelerations: None (Ruthy Halsmer, RN) Datetime: 01/31/2017 15:56 Patient Position/Activity: Standing (Ruthy Halsmer, RN) Datetime: 01/31/2017 15:54 NBP Sys/Rafaela/Mean (mmHg): 134 (QS system process) : 79 (QS system process) : 100 (QS system process) Pulse: 95 (QS system process) Respirations: 18 (Ruthy Nava, RN) Temperature (F): 99.5 (Ruthy Halsmer, RN) Temperature (C): 37.5 (QS system process) Temperature Route: Oral (Ruthy Berrioser, RN) LaborFlag: Antepartum (QS system process) Datetime: 01/31/2017 15:38 Patient Care Comments: PT UP IN ROCKING CHAIR (Ruthy Nava, RN) Datetime: 01/31/2017 15:33 Communication Comments: PT HAVING BM (Ruthy Berrioser, RN) Datetime: 01/31/2017 15:30 Monitor Mode: External (Ruthy Halsmer, RN) Frequency (min): 3-5 (Ruthy Halsmer, RN) Quality: Mild/Moderate (Ruthy Halsmer, RN) Duration (sec): 50-80 (Ruthy Halsmer, RN) Resting Tone (Palpate): Relaxed (Ruthy Halsmer, RN) Monitor Mode: External US (Ruthy Halsmer, RN) FHR Baseline Rate : 145 (Ruthy Halsmer, RN) FHR Baseline Changes: No Baseline Change (Ruthy Halsmer, RN) Variability: Moderate 6-25 bpm (Ruthy Halsmer, RN) Decelerations: Early (Ruthy Halsmer, RN) Datetime: 01/31/2017 15:21 I/O Interventions: Up to BR (Ruthy Halsmer, RN) Datetime: 01/31/2017 15:19 Communication Comments: CONSENTS REVIEWED AND SIGNED (Ruthy Nava RN) Datetime: 01/31/2017 15:16 Stage of : Antepartum (Ruthy Nava RN) Frequency (min): 3-5 mins (Ruthy Nava RN) Monitor Mode: External US (Ruthy Nava RN) Pain Scale: 0 (Ruthy Nava RN) Pain Presence: None/Denies (Ruthy Nava RN) Pain Type: N/A (Ruthy Nava RN) Pain Location: Abdomen; Back (Ruthy Nava RN) Pain Relief Measures: Comfort Measures (Ruthy Nava RN) Pain Coping: Breathing Through Contractions (Ruthy Nava RN) Dilatation (cm): 3.0 (Ruthy Nava RN) Exam by: Josemanuel HALL CNM (Ruthy Nava RN) Membrane Status: Ruptured (Ruthy Nava RN) Membranes Rupture Method: Spontaneous (Ruthy Nava RN) Amniotic Fluid Color: Clear (Ruthy Nava RN) Amniotic Fluid Amount: Small (Ruthy Nava RN) Amniotic Fluid Odor: Normal (Ruthy Nava RN) Vaginal Bleeding: None (Ruthy Nava RN) Level of Consciousness: Fully Conscious (Ruthy Nava RN) DTR's/Clonus: DTRs 2+ (Ruthy Nava RN) Headache: Denies (Ruthy Nava RN) Breath Sounds, Left: Clear and Equal (Ruthy Halsmer, RN) Breath Sounds, Right: Clear and Equal (Ruthy Nava RN) Nausea/Vomiting: Denies (Ruthy Nava RN) RUQ Epigastric Pain: Denies (Ruthy Nava RN) Instructional Method: Verbal; Written; Patient Instructed; Family/Support Person Instructed; Via Internal Grinding Machine Operator; Verbalized Understanding (Ruthy Nava RN) Plan of Care: Plan of Care Discussed; Vaginal Delivery (Ruthy Nava RN) Unit Routine: [place] to Room; Call Liao; Bed; Visiting Policy; Phone/Cell Phone Use; Photography; Consents Signed (Ruthy Nava RN) Labor/Induction: Labor Stages (Ruthy Nava RN) Related: Common Discomforts of (Ruthy Nava RN) Grief Support: Procedure/Plan (Ruthy Nava RN) LaborFlag: Antepartum (QS system process) Datetime: 01/31/2017 15:02 IV/Blood Work: IV Started; Labs Drawn with IV Start (Ruthy Nava RN) Datetime: 01/31/2017 15:00 Stage of : Antepartum (Ruthy Nava RN) Monitor Mode: External (Ruthy Nava, THAD) Frequency (min): 3-5 (Ruthy Nava RN) Quality: Mild (Ruthy Nava RN) Duration (sec): 50-80 (Ruthy Nava, RN) Duration Criteria: Less than Two 120 Second Contractions (Ruthy Nava RN) Resting Tone (Palpate): Relaxed (Ruthy Nava RN) Monitor Mode: External US (Ruthy Nava RN) FHR Baseline Rate : 150 (Ruthy Nava RN) FHR Baseline Changes: No Baseline Change (Ruthy Nava, RN) Variability: Moderate 6-25 bpm (Ruthy Berrioser, RN) Accelerations: 15X15 (Ruthy Berrioser, RN) Decelerations: None (Ruthy Berrioser, RN) Datetime: 01/31/2017 14:53 NBP Sys/Rafaela/Mean (mmHg): 141 (QS system process) : 71 (QS system process) : 96 (QS system process) Pulse: 101 (QS system process)
[2017-01-31] MEDS ORDERED: BENZOCAINE/MENTHOL AEROSOL SPRAY 56 ML TOP PRN (20:37)
[2017-01-31] MEDS ORDERED: OXYTOCIN/NORMAL SALINE 1,000 ML IV PRN (20:37)
[2017-01-31] MEDS ORDERED: DIBUCAINE 1% OINTMENT 28 GM TP PRN (20:37)
[2017-01-31] MEDS ORDERED: MEASLES,MUMPS&RUBELLA VACC/PF 0.5 ML VIAL SUBCUT PRN (20:37)
[2017-01-31] MEDS ORDERED: DIPH/PERTUSS(ACELL)/TETANUS VAC/PF 0.5 ML SYR (>=10YO) IM PRN (20:37)
[2017-01-31] MEDS ORDERED: ZOLPIDEM TARTRATE 5 MG TABLET PO PRN (20:37)
[2017-01-31] MEDS ORDERED: IBUPROFEN 800 MG TABLET ONE (21:05)
[2017-01-31] MEDS: IBUPROFEN 800 MG TABLET PO SCH (21:06)
[2017-01-31] MEDS ORDERED: ACETAMINOPHEN WITH CODEINE #3 TABLET ONE (21:57)
[2017-01-31] MEDS: ACETAMINOPHEN WITH CODEINE #3 TABLET PO PRN (21:58)
[2017-02-01] MEDS: ACETAMINOPHEN WITH CODEINE #3 TABLET PO PRN ×3 (02:05→17:33)
--- NOTE | 2017-02-01 04:46 | L&D General Admission ---
General Admit Datetime Report Generated by [facility]: 02/01/2017 04:45 Height (in): 65 (01/31/2017 14:35:QS system process) Medication Allergies: No Known Allergies (01/31/2017) (01/31/2017 14:35:QS system process) Hemoglobin: 11.0 L (01/31/2017 15:04:QS system process) Hematocrit: 33.1 L (01/31/2017 15:04:QS system process) MCV: 77 L (01/31/2017 15:04:QS system process)
--- NOTE | 2017-02-01 04:46 | L&D Discharge Summary ---
OB Discharge Summary Datetime Report Generated by [facility]: 02/01/2017 04:45 DISCHARGE DIAGNOSIS Gestation: 38.5 Number of Babies in Womb: 1 Parity: 5
--- NOTE | 2017-02-01 04:46 | L&D Admission Assessment ---
LD ADM ASMT Datetime Report Generated by CPN: 02/01/2017 04:45 Assessment Type: Ongoing Assessment (01/31/2017 20:00:Sai Guzman RN) Assessment Type: Admission Assessment (01/31/2017 15:16:Ruthy Nava RN) Weight (lb): 176 (02/01/2017 00:15:QS system process) Weight (lb): 176 (01/31/2017 14:35:QS system process) Weight (kg): 80.0 (02/01/2017 00:15:QS system process) Weight (kg): 80.0 (01/31/2017 14:35:QS system process) Total Wt Gain (lb): 48 (02/01/2017 00:15:QS system process) Total Wt Gain (lb): 48 (01/31/2017 14:35:QS system process) Wt Gain (kg): 21.8 (02/01/2017 00:15:QS system process) Wt Gain (kg): 21.8 (01/31/2017 14:35:QS system process) BMI: 29.3 (02/01/2017 00:15:QS system process) BMI: 28.4 (01/31/2017 14:35:QS system process) Pain Scale: 2 (01/31/2017 21:30:Sai Guzman RN) Pain Scale: 2 (01/31/2017 21:00:Sai Guzman RN) Pain Scale: 1 (01/31/2017 20:45:Sai Guzman RN) Pain Scale: 1 (01/31/2017 20:00:Sai Guzman RN) Pain Scale: 0 (01/31/2017 15:16:Ruthy Nava RN) Pain Presence: Constant (01/31/2017 21:30:Sai Guzman RN) Pain Presence: Constant (01/31/2017 21:00:Sai Guzman RN) Pain Presence: Constant (01/31/2017 20:45:Sai Guzman RN) Pain Presence: Intermittent (01/31/2017 20:00:Sai Guzman RN) Pain Presence: None/Denies (01/31/2017 15:16:Ruthy Nava RN) Pain Type: Cramping (01/31/2017 21:30:Sai Guzman RN) Pain Type: Cramping (01/31/2017 21:00:Sai Guzman RN) Pain Type: Cramping (01/31/2017 20:45:Sai Guzman RN) Pain Type: Contraction (01/31/2017 20:00:Sai Guzman RN) Pain Type: N/A (01/31/2017 15:16:Ruthy Nava RN) Pain Location: Abdomen (01/31/2017 21:30:Sai Guzman RN) Pain Location: Abdomen (01/31/2017 21:00:Sai Guzman RN) Pain Location: Abdomen (01/31/2017 20:45:Sai Guzman RN) Pain Location: Abdomen; Back (01/31/2017 20:00:Sai Guzman RN) Pain Location: Abdomen; Back (01/31/2017 15:16:Ruthy Nava RN) Pain Goal: 0 (01/31/2017 20:00:Sai Guzman RN) Pain Related to Contraction: Yes (01/31/2017 20:00:Sai Guzman RN) Pain Related to Contraction: Yes (01/31/2017 15:16:Ruthy Nava RN) Pain Comments: Pain improved since epidural given (01/31/2017 20:00:Sai Guzman RN) Frequency (min): 1.5-2.5 (01/31/2017 20:15:Sai Guzman RN) Frequency (min): 2-3 (01/31/2017 20:00:Sai Guzman RN) Frequency (min): 2-3.5 (01/31/2017:45:Sai Guzman RN) Frequency (min): 2-3 (01/31/2017 19:30:Sai Guzman RN) Frequency (min): 2.5-4.5 (01/31/2017 19:15:Sai Guzman RN) Frequency (min): 2-4 (01/31/2017 17:30:Kezia Hayes RN) Frequency (min): 3-5 (01/31/2017 16:30:Ruthy Nava RN) Frequency (min): 3-5 (01/31/2017 16:00:Ruthy Nava RN) Frequency (min): 3-5 (01/31/2017 15:30:Ruthy Nava RN) Frequency (min): 3-5 mins (01/31/2017 15:16:Ruthy Nava RN) Frequency (min): 3-5 (01/31/2017 15:00:Ruthy Nava RN) Duration (sec): 60-80 (01/31/2017 20:15:Sai Guzman RN) Duration (sec): 70-80 (01/31/2017 20:00:Sai Guzman RN) Duration (sec): 70-80 (01/31/2017 19:45:Sai Guzman RN) Duration (sec): 80-110 (01/31/2017 19:30:Sai Guzman RN) Duration (sec): 60-120 (01/31/2017 19:15:Sai Guzman RN) Duration (sec): 60-90 (01/31/2017 17:30:Kezia Hayes RN) Duration (sec): 50-80 (01/31/2017 16:30:Ruthy Nava RN) Duration (sec): 40-80 (01/31/2017 16:00:Ruthy Nava RN) Duration (sec): 50-80 (01/31/2017 15:30:Ruthy Nava RN) Duration (sec): 50-80 (01/31/2017 15:00:Ruthy Nava RN) Quality: Moderate (01/31/2017 20:15:Sai Guzman RN) Quality: Moderate (01/31/2017 20:00:Sai Guzman RN) Quality: Moderate (01/31/2017 19:45:Sai Guzman RN) Quality: Moderate (01/31/2017 19:30:Sai Guzman RN) Quality: Moderate (01/31/2017 19:15:Sai Guzman RN) Quality: Moderate to Strong (01/31/2017 17:30:Kezia Hayes RN) Quality: Mild/Moderate (01/31/2017 16:30:Ruthy Nava RN) Quality: Mild/Moderate (01/31/2017 16:00:Ruthy Nava RN) Quality: Mild/Moderate (01/31/2017 15:30:Ruthy Nava RN) Quality: Mild (01/31/2017 15:00:Ruthy Nava RN) Resting Tone [place]: Relaxed (01/31/2017 20:15:Sai Guzman RN) Resting Tone [place]: Relaxed (01/31/2017 20:00:Sai Guzman RN) Resting Tone [place]: Relaxed (01/31/2017 19:45:Sai Guzman RN) Resting Tone [place]: Relaxed (01/31/2017 19:30:Sai Guzman RN) Resting Tone [place]: Relaxed (01/31/2017 19:15:Sai Guzman RN) Resting Tone [place]: Relaxed (01/31/2017 17:30:Kezia Hayes RN) Resting Tone [place]: Relaxed (01/31/2017 16:30:Ruthy Nava RN) Resting Tone [place]: Relaxed (01/31/2017 16:00:Ruthy Nava RN) Resting Tone [place]: Relaxed (01/31/2017 15:30:Ruthy Nava RN) Resting Tone [place]: Relaxed (01/31/2017 15:00:Ruthy Nava RN) Dilatation (cm): 10.0 (01/31/2017 20:15:Kezia Hayes RN) Dilatation (cm): 4.5 (01/31/2017 18:23:Kezia Hayes RN) Dilatation (cm): 3.0 (01/31/2017 15:16:Ruthy Nava RN) Effacement (%): 100 (01/31/2017 20:15:Kezia Hayes RN) Effacement (%): 70 (01/31/2017 18:23:Kezia Hayes RN) Station: 2 (01/31/2017 20:15:Kezia Hayes RN) Station: -1 (01/31/2017 18:23:Kezia Hayes RN) Presentation on Admission: Vertex (01/31/2017 15:16:Ruthy Nava RN) Membranes Status: Ruptured (01/31/2017 15:16:Ruthy Nava RN) Membranes Rupture D/ (01/31/2017 18:50:Kezia Hayes RN) ROM Method: Spontaneous (01/31/2017 15:16:Ruthy Naav RN) Amniotic Fluid Color: Clear (01/31/2017 15:16:Ruthy Nava RN) Amniotic Fluid Amount: Small (01/31/2017 15:16:Ruthy Nava RN) Amniotic Fluid Odor: Normal (01/31/2017 15:16:Ruthy Nava RN) Level of Consciousness: Fully Conscious (01/31/2017 20:00:Sai Guzman RN) Level of Consciousness: Fully Conscious (01/31/2017 15:16:Ruthy Nava RN) DTR's/Clonus: No Clonus (01/31/2017 20:00:Sai Guzman RN) DTR's/Clonus: DTRs 2+ (01/31/2017 15:16:Ruthy Nava RN) Headache: Denies (01/31/2017 20:00:Sai Guzman RN) Headache: Denies (01/31/2017 15:16:Ruthy Nava RN) Dizziness: No (01/31/2017 20:00:Sai Guzman RN) Dizziness: No (01/31/2017 15:16:Ruthy Nava RN) Blurred Vision: No (01/31/2017 20:00:Sai Guzman RN) Blurred Vision: No (01/31/2017 15:16:Ruthy Nava RN) Extremity Numbness/Tingling : Right Leg; Left Leg (Annotations: R/T epidural ) (01/31/2017 20:00:Sai Guzman RN) Extremity Numbness/Tingling : None (01/31/2017 15:16:Ruthy Nava RN) Extremity Movement: Limited Range of Motion (01/31/2017 20:00:Sai Guzman RN) Extremity Movement: Full Range of Motion (01/31/2017 15:16:Ruthy Nava RN) Heart Rhythm: Regular (01/31/2017 20:00:Sai Guzman RN) Heart Rhythm: Regular (01/31/2017 15:16:Ruthy Nava RN) [place]ailbeds: [place] (01/31/2017 20:00:Sai Guzman RN) [place]ailbeds: [place] (01/31/2017 15:16:Ruthy Nava RN) Capillary Refill: Less than 3 Seconds (01/31/2017 20:00:Sai Guzman RN) Capillary Refill: Less than 3 Seconds (01/31/2017 15:16:Ruthy Nava RN) Lower Extremities Edema: None (01/31/2017 20:00:Sai Guzman RN) Lower Extremities Edema: Bilateral Lower Extremities (01/31/2017 15:16:Ruthy Nava RN) Lower Extremities Edema Degree: None (01/31/2017 20:00:Sai Guzman RN) Lower Extremities Edema Degree: None (01/31/2017 15:16:Ruthy Nava RN) Upper Extremities Edema: None (01/31/2017 20:00:Sai Guzman RN) Upper Extremities Edema: Bilateral Upper Extremities (01/31/2017 15:16:Ruthy Nava RN) Upper Extremities Edema Degree: None (01/31/2017 20:00:Sai Guzman RN) Upper Extremities Edema Degree: None (01/31/2017 15:16:Ruthy Nava RN) Facial Edema: None (01/31/2017 20:00:Sai Guzman RN) Facial Edema: None (01/31/2017 15:16:Ruthy Nava RN) Johanna's Sign Left Leg: Negative (01/31/2017 15:16:Ruthy Nava RN) Johanna's Sign Right Leg: Negative (01/31/2017 15:16:Ruthy Nava RN) DVT Risk Age: Age less than 41 years (01/31/2017 15:16:Ruthy Nava RN) DVT Risk BMI: BMI<31 (01/31/2017 15:16:Ruthy Nava RN) DVT Risk Surgery: None Applicable (01/31/2017 15:16:Ruthy Nava RN) DVT Risk Other: None Applicable (01/31/2017 15:16:Ruthy Nava RN) DVT Risk Total: 0 (01/31/2017 15:16:QS system process) DVT Risk Text: Low Risk (<10%) No specific measures, early ambulation (01/31/2017 15:16:QS system process) Respiratory Effort: Unlabored; Regular Rhythm; Equal Expansion (01/31/2017 20:00:Sai Guzman RN) Respiratory Effort: Unlabored; Regular Rhythm; Equal Expansion (01/31/2017 15:16:Ruthy Nava RN) Breath Sounds, Left: Clear and Equal (01/31/2017 20:00:Sai Guzman RN) Breath Sounds, Left: Clear and Equal (01/31/2017 15:16:Ruthy Nava RN) Breath Sounds, Right: Clear and Equal (01/31/2017 20:00:Sai Guzman RN) Breath Sounds, Right: Clear and Equal (01/31/2017 15:16:Ruthy Nava RN) Cough Productivity: None (01/31/2017 20:00:Sai Guzman RN) Cough Productivity: None (01/31/2017 15:16:Ruthy Nava RN) Nausea/Vomiting: Denies (01/31/2017 20:00:Sai Guzman RN) Nausea/Vomiting: Denies (01/31/2017 15:16:Ruthy Nava RN) Bowel Sounds: Normoactive (01/31/2017 15:16:Ruthy Nava RN) RUQ Epigastric Pain: Denies (01/31/2017 20:00:Sai Guzman RN) RUQ Epigastric Pain: Denies (01/31/2017 15:16:Ruthy Nava RN) Bowel Patterns: Soft, Formed Stool (01/31/2017 20:00:Sai Guzman RN) Bowel Patterns: Soft, Formed Stool (01/31/2017 15:16:Ruthy Nava RN) Hemorrhoids: Present (01/31/2017 20:00:Sai Guzman RN) Hemorrhoids: Present (01/31/2017 15:16:Ruthy Nvaa RN) Diet Type: Regular diet (01/31/2017 20:00:Sai Guzman RN) Diet Type: Regular diet (01/31/2017 15:16:Ruthy Nava RN) Last Meal: 01/31/2017 12:00 (01/31/2017 20:00:Sai Guzman RN) Last Meal: 01/31/2017 12:00 (01/31/2017 15:16:Ruthy Nava RN) Bladder: Nondistended (01/31/2017 15:16:Ruthy Nava RN) Frequency of Urination: No (01/31/2017 15:16:Ruthy Nava RN) Urination Burning: No (01/31/2017 15:16:Ruthy Nava RN) CVA Tenderness: No (01/31/2017 15:16:Ruthy Nava RN) Vaginal Bleeding: None (01/31/2017 15:16:Ruthy Nava RN) Vaginal Discharge Amount: None (01/31/2017 15:16:Ruthy Nava RN) Vaginal Discharge Color: N/A (01/31/2017 15:16:Ruthy Nava RN) Vaginal Discharge Character: None (01/31/2017 15:16:Ruthy Nava RN) Skin Color: Normal for Race (01/31/2017 20:00:Sai Guzman RN) Skin Color: Normal for Race (01/31/2017 15:16:Ruthy Nava RN) Skin Temperature: Warm (01/31/2017 20:00:Sai Guzman RN) Skin Temperature: Warm (01/31/2017 15:16:Ruthy Nava RN) Skin Moisture: Dry (01/31/2017 20:00:Sai Guzman RN) Skin Moisture: Dry (01/31/2017 15:16:Ruthy Nava RN) Surgical Scars: One surgical scar on buttocks r/t removal of cyst (01/31/2017 20:00:Sai Guzman RN) Surgical Scars: NONE (01/31/2017 15:16:Ruthy Nava RN) Body Piercings/Tattoos: Bilateral ear piercings (01/31/2017 20:00:Sai Guzman RN) Body Piercings/Tattoos: BILATERAL EARRINGS (01/31/2017 15:16:Ruthy Nava RN) Amaury Scale Sensory Perception: Slightly Limited- Responds to verbal commands but cannot always communicate discomfort or need to be turned OR has some sensory impairment which limits ability to feel pain or discomfort in 1 or 2 extremities (01/31/2017 20:00:Sai Guzman RN) Amaury Scale Sensory Perception: No Impairment- Responds to verbal commands. Has no sensory deficit which would limit ability to feel or voice pain or discomfort (01/31/2017 15:16:Ruthy Nava RN) Amaury Scale Moisture: Rarely Moist- Skin is usually dry. Linen only requires changing at routine intervals (01/31/2017 20:00:Sai Guzman RN) Amaury Scale Moisture: Rarely Moist- Skin is usually dry. Linen only requires changing at routine intervals (01/31/2017 15:16:Ruthy Nava RN) Amaury Scale Activity: Bedfast- Confined to bed. (01/31/2017 20:00:Sai Guzman RN) Amaury Scale Activity: Walks Frequently- Walks outside the room at least twice a day and inside room at least every 2 hours during the day. (01/31/2017 15:16:Ruthy Naav RN) Amaury Scale Mobility: Slightly Limited- Makes frequent though slight changes in body or extremity position independently (01/31/2017 20:00:Sai Guzman RN) Amaury Scale Mobility: No Limitations- Makes major and frequent changes in position without assistance (01/31/2017 15:16:Ruthy Nava RN) Amaury Scale Nutrition: Excellent- Eats most of every meal. Never refuses a meal. Usually eats a total of 4 or more servings of meat and dairy products. Occasionally eats between meals. Does not require supplementation (01/31/2017 20:00:Sai Guzman RN) Amaury Scale Nutrition: Excellent- Eats most of every meal. Never refuses a meal. Usually eats a total of 4 or more servings of meat and dairy products. Occasionally eats between meals. Does not require supplementation (01/31/2017 15:16:Ruthy Nava RN) Amaury Scale Friction and Shear: No Apparent Problem- Moves in bed and in chair independently and has sufficient muscle strength to lift up completely during move. Maintains good position in bed or chair at all times (01/31/2017 20:00:Sai Guzman RN) Amaury Scale Friction and Shear: No Apparent Problem- Moves in bed and in chair independently and has sufficient muscle strength to lift up completely during move. Maintains good position in bed or chair at all times (01/31/2017 15:16:Ruthy Nava RN) Amaury Scale Total: 18 (01/31/2017 20:00:QS system process) Amaury Scale Total: 23 (01/31/2017 15:16:QS system process) Amaury Scale Risk: No Risk of Pressure Ulcer Noted at this Time (01/31/2017 20:00:QS system process) Amaury Scale Risk: No Risk of Pressure Ulcer Noted at this Time (01/31/2017 15:16:QS system process) Family Support: Family supportive (01/31/2017 20:00:Sai Guzman RN) Family Support: Significant Other supportive, at bedside frequently (01/31/2017 15:16:Ruthy Nava RN) Emotional State: Calm/Relaxed (01/31/2017 20:00:Sai Guzman RN) Call Liao Within Reach: Yes (01/31/2017 20:00:Sai Guzman RN) Call Liao Within Reach: Yes (01/31/2017 15:16:Ruthy Nava RN) Side Rails Up: Yes (01/31/2017 20:00:Sai Guzman RN) Side Rails Up: Yes (01/31/2017 15:16:Ruthy Nava RN) Bed Wheels Locked: Yes (01/31/2017 20:00:Sai Guzman RN) Bed Wheels Locked: Yes (01/31/2017 15:16:Ruthy Nava RN) Arm Bands Present: Yes (01/31/2017 20:00:Sai Guzman RN) Arm Bands Present: Yes (01/31/2017 15:16:Ruthy Nava RN) Isolation: [place] (01/31/2017 20:00:Sai Guzman RN) Fall Risk History of Falling: (0) No (01/31/2017 20:00:Sai Guzman RN) Fall Risk History of Falling: (0) No (01/31/2017 15:16:Ruthy Nava RN) Fall Risk Secondary Diagnosis: (15) Yes (01/31/2017 15:16:Ruthy Nava RN) Fall Risk Ambulatory Aid: (0) None/Bedrest/Wheelchair/Nurse Assist (01/31/2017 15:16:Ruthy Nava RN) Fall Risk IV Therapy: (20) Yes (01/31/2017 15:16:Ruthy Nava RN) Fall Risk Gait: (0) Normal/Bedrest/Immobile (01/31/2017 15:16:Ruthy Nava RN) Fall Risk Mental Status: (0) Oriented to Own Ability (01/31/2017 15:16:Ruthy Nava RN) Fall Risk Score: 35 (01/31/2017 15:16:QS system process) Fall Risk Score Definition: Low Risk: Please see standard fall prevention interventions (01/31/2017 15:16:QS system process) Recent Exp Communicable Disease: No (01/31/2017 20:00:Sai Guzman RN) Recent Exp Communicable Disease: No (01/31/2017 15:16:Ruthy Nava RN) Cough or Fever: No (01/31/2017 20:00:Sai Guzman RN) Cough or Fever: No (01/31/2017 15:16:Ruthy Nava RN) Foreign Travel Past 10 Days: No (01/31/2017 20:00:Sai Gumzan RN) Foreign Travel Past 10 Days: No (01/31/2017 15:16:Ruthy Nava RN) Open Wounds or Sores: No (01/31/2017 20:00:Sai Guzman RN) Open Wounds or Sores: No (01/31/2017 15:16:Ruthy Nava RN) Prior Antibiotic Resistance Tx: No (01/31/2017 20:00:Sai Guzman RN) Prior Antibiotic Resistance Tx: No (01/31/2017 15:16:Ruthy Nava RN) Cultures Obtained: Not Applicable (01/31/2017 20:00:Sai Guzman RN) Cultures Obtained: Not Applicable (01/31/2017 15:16:Ruthy Nava RN) Isolation Initiated: No (01/31/2017 20:00:Sai Guzman RN) Isolation Initiated: No (01/31/2017 15:16:Ruthy Nava RN) Pt/Family Education: Handwashing Hygiene (01/31/2017 20:00:Sai Guzman RN) Pt/Family Education: Not Applicable (01/31/2017 15:16:Ruthy Nava RN) FHR Baseline Rate (bpm) Baby A: 145 (01/31/2017 20:15:Sai Guzman RN) FHR Baseline Rate (bpm) Baby A: 140 (01/31/2017 20:00:Sai Guzman RN) FHR Baseline Rate (bpm) Baby A: 140 (01/31/2017 19:30:Sai Guzman RN) FHR Baseline Rate (bpm) Baby A: 140 (01/31/2017 19:15:Sai Guzman RN) FHR Baseline Rate (bpm) Baby A: 145 (01/31/2017 17:30:Kezia Hayes RN) FHR Baseline Rate (bpm) Baby A: 145 (01/31/2017 16:30:Ruthy Nava RN) FHR Baseline Rate (bpm) Baby A: 140 (01/31/2017 16:00:Ruthy Nava RN) FHR Baseline Rate (bpm) Baby A: 145 (01/31/2017 15:30:Ruthy Nava RN) FHR Baseline Rate (bpm) Baby A: 150 (01/31/2017 15:00:Ruthy Nava RN) Variability Baby A: Moderate 6-25 bpm (01/31/2017 20:15:Sai Guzman RN) Variability Baby A: Moderate 6-25 bpm (01/31/2017 20:00:Sai Guzman RN) Variability Baby A: Moderate 6-25 bpm (01/31/2017 19:45:Sai Guzman RN) Variability Baby A: Moderate 6-25 bpm (01/31/2017 19:30:Sai Guzman RN) Variability Baby A: Moderate 6-25 bpm (01/31/2017 19:15:Sai Guzman RN) Variability Baby A: Moderate 6-25 bpm (01/31/2017 17:30:Kezia Hayes RN) Variability Baby A: Moderate 6-25 bpm (01/31/2017 16:30:Ruthy Nava RN) Variability Baby A: Moderate 6-25 bpm (01/31/2017 16:00:Ruthy Nava RN) Variability Baby A: Moderate 6-25 bpm (01/31/2017 15:30:Ruthy Nava RN) Variability Baby A: Moderate 6-25 bpm (01/31/2017 15:00:Ruthy Nava RN) Accelerations Baby A: None (01/31/2017 20:15:Sai Guzman RN) Accelerations Baby A: 10X10 (01/31/2017 20:00:Sai Guzman RN) Accelerations Baby A: None (01/31/2017 19:45:Sai Guzman RN) Accelerations Baby A: None (01/31/2017 19:30:Sai Guzman RN) Accelerations Baby A: 10X10 (01/31/2017 19:15:Sai Guzman RN) Accelerations Baby A: 15X15 (01/31/2017 17:30:Kezia Hayes RN) Accelerations Baby A: 15X15 (01/31/2017 16:30:Ruthy Nava RN) Accelerations Baby A: 15X15 (01/31/2017 16:00:Ruthy Nava RN) Accelerations Baby A: 15X15 (01/31/2017 15:00:Ruthy Nava RN) Decelerations Baby A: Variable (01/31/2017 20:15:Sai Guzman RN) Decelerations Baby A: Variable (01/31/2017 19:45:Sai Guzman RN) Decelerations Baby A: None (01/31/2017 19:15:Sai Guzman RN) Decelerations Baby A: None (01/31/2017 16:30:Ruthy Nava RN) Decelerations Baby A: None (01/31/2017 16:00:Ruthy Nava RN) Decelerations Baby A: Early (01/31/2017 15:30:Ruthy Nava RN) Decelerations Baby A: None (01/31/2017 15:00:Ruthy Nava RN) Assessment Flag: Admission Assessment (01/31/2017 15:16:QS system process)
--- NOTE | 2017-02-01 04:46 | L&D Flow Sheet ---
LD Flowsheet Datetime Report Generated by CPN: 02/01/2017 04:45 Datetime: 01/31/2017 21:40 NBP Sys/Rafaela/Mean (mmHg): 115 (QS system process) : 63 (QS system process) : 82 (QS system process) Pulse: 79 (QS system process) Datetime: 01/31/2017 21:30 Pain Scale: 2 (Sai Guzman RN) Pain Presence: Constant (Sai Guzman RN) Pain Type: Cramping (Sai Thomas, RN) Pain Location: Abdomen (Sai Guzman, RN) Datetime: 01/31/2017 21:19 NBP Sys/Rafaela/Mean (mmHg): 122 (QS system process) : 73 (QS system process) : 93 (QS system process) Pulse: 82 (QS system process) Datetime: 01/31/2017 21:04 NBP Sys/Rafaela/Mean (mmHg): 109 (QS system process) : 70 (QS system process) : 84 (QS system process) Pulse: 90 (QS system process) Datetime: 01/31/2017 21:00 Pain Scale: 2 (Sai Guzman RN) Pain Presence: Constant (Sai Guzman RN) Pain Type: Cramping (Sai Guzman RN) Pain Location: Abdomen (Sai Guzman RN) Pain Relief Measures: Pain Medication Given (Annotations: Ibuprofen 800mg ) (Sai Guzman RN) Datetime: 01/31/2017 20:49 NBP Sys/Rafaela/Mean (mmHg): 121 (QS system process) : 75 (QS system process) : 88 (QS system process) Pulse: 96 (QS system process) Datetime: 01/31/2017 20:45 Stage of : Recovery (Sai Guzman RN) Pain Scale: 1 (Sai Guzman RN) Pain Presence: Constant (Sai Guzman RN) Pain Type: Cramping (Sai Guzman RN) Pain Location: Abdomen (Sai Guzman RN) Datetime: 01/31/2017 20:20 Pulse: 111 (QS system process) SpO2 (%): 98 (QS system process) I/O Interventions: Fleming Discontinued (Ekzia Lattibeaudeir, RN) LaborFlag: Antepartum (QS system process) Datetime: 01/31/2017 20:19 NBP Sys/Rafaela/Mean (mmHg): 139 (QS system process) : 73 (QS system process) : 100 (QS system process) Pulse: 187 (QS system process) LaborFlag: Antepartum (QS system process) Datetime: 01/31/2017 20:15 Monitor Mode: External (Sai Thomas, RN) Frequency (min): 1.5-2.5 (Sai Guzman, RN) Quality: Moderate (Sai Guzman, RN) Duration (sec): 60-80 (Sai Guzman, RN) Resting Tone (Palpate): Relaxed (Sai Guzman, RN) Monitor Mode: External US (Sai Guzman, RN) FHR Baseline Rate : 145 (Sai Guzman, RN) Variability: Moderate 6-25 bpm (Sai Guzman RN) Accelerations: None (Sai Guzman, RN) Decelerations: Variable (Sai Guzman, RN) Dilatation (cm): 10.0 (Kezia MaurertibTHAD guthrie) Effacement (%): 100 (Kezia Hayes RN) Station: 2 (Kezia Hayes RN) Exam by: Mary Trejo RN (Kezia Hayes, THAD) Datetime: 01/31/2017 20:04 NBP Sys/Rafaela/Mean (mmHg): 143 (QS system process) : 73 (QS system process) : 100 (QS system process) Pulse: 103 (QS system process) LaborFlag: Antepartum (QS system process) Datetime: 01/31/2017 20:00 Monitor Mode: External (Sai Guzman RN) Frequency (min): 2-3 (Sai Guzman RN) Quality: Moderate (Sai Guzman RN) Duration (sec): 70-80 (Sai Guzman RN) Resting Tone (Palpate): Relaxed (Sai Guzman RN) Monitor Mode: External US (Sai Guzman RN) FHR Baseline Rate : 140 (Sai Guzman RN) Variability: Moderate 6-25 bpm (Sai Guzman RN) Accelerations: 10X10 (Sai Guzman RN) Pain Scale: 1 (Sai Guzman RN) Pain Presence: Intermittent (Sai Guzman RN) Pain Type: Contraction (Sai Guzman RN) Pain Location: Abdomen; Back (Sai Guzman RN) Pain Goal: 0 (Sai Guzman RN) Pain Relief Measures: Epidural Given (Sai Guzman RN) Pain Coping: Talking Through Contractions; Breathing Through Contractions (Sai Guzman RN) Pain Assessment Comments: Pain improved since epidural given (Sai Guzman RN) Level of Consciousness: Fully Conscious (Sai Guzman RN) DTR's/Clonus: No Clonus (Sai Guzman RN) Headache: Denies (Sai Guzman RN) Breath Sounds, Left: Clear and Equal (Sai Guzman RN) Breath Sounds, Right: Clear and Equal (Sai Guzman RN) Nausea/Vomiting: Denies (Sai Guzman RN) RUQ Epigastric Pain: Denies (Sai Guzman RN) LaborFlag: Antepartum (QS system process) Datetime: 01/31/2017 19:45 Monitor Mode: External (Sai Thomas, RN) Frequency (min): 2-3.5 (Sai Thomas, RN) Quality: Moderate (Sai Thomas, RN) Duration (sec): 70-80 (Sai Thomas, RN) Resting Tone (Palpate): Relaxed (Sai Thomas, RN) Monitor Mode: External US (Sai Thomas, RN) Variability: Moderate 6-25 bpm (Sai Thomas, RN) Accelerations: None (Sai Thomas, RN) Decelerations: Variable (Sai Thomas, RN) Datetime: 01/31/2017 19:35 Communication Comments: Pt states she has pressure with contractions, none between contractions. Pt encouraged to let me know when her pressure lasts all the time whether contractions or not. (Kezia Hayes, RN) Datetime: 01/31/2017 19:30 Monitor Mode: External (Sai Thomas, RN) Frequency (min): 2-3 (Sai Guzman, RN) Quality: Moderate (Sai Guzman, RN) Duration (sec): 80-110 (Sai Guzman, RN) Resting Tone (Palpate): Relaxed (Sai Guzman, RN) Monitor Mode: External US (Sai Guzman, RN) FHR Baseline Rate : 140 (Sai Guzman, RN) Variability: Moderate 6-25 bpm (Sai Guzman, RN) Accelerations: None (Sai Guzman, RN) Datetime: 01/31/2017 19:20 NBP Sys/Rafaela/Mean (mmHg): 130 (QS system process) : 80 (QS system process) : 99 (QS system process) Pulse: 95 (QS system process) LaborFlag: Antepartum (QS system process) Datetime: 01/31/2017 19:15 Monitor Mode: External (Sai Guzman, RN) Frequency (min): 2.5-4.5 (Sai Guzman, RN) Quality: Moderate (Sai Guzman, RN) Duration (sec): 60-120 (Sai Guzman RN) Resting Tone (Palpate): Relaxed (Sai Guzman, RN) Monitor Mode: External US (Sai Guzman RN) FHR Baseline Rate : 140 (Sai Guzman RN) Variability: Moderate 6-25 bpm (Sai Guzman, RN) Accelerations: 10X10 (Sai Guzman, RN) Decelerations: None (Sai Guzman, RN) Datetime: 01/31/2017 19:04 NBP Sys/Rafaela/Mean (mmHg): 129 (QS system process) : 72 (QS system process) : 93 (QS system process) Pulse: 99 (QS system process) LaborFlag: Antepartum (QS system process) Datetime: 01/31/2017 18:50 Membranes Ruptured Date/Time: 01/31/2017 12:00 (Kezia Hayes RN) Pitocin (milliunit): Pitocin Increased to (milliunits) @ 4 (Kezia Hayes RN) Datetime: 01/31/2017 18:49 NBP Sys/Rafaela/Mean (mmHg): 132 (QS system process) : 78 (QS system process) : 98 (QS system process) Pulse: 87 (QS system process) LaborFlag: Antepartum (QS system process) Datetime: 01/31/2017 18:32 NBP Sys/Rafaela/Mean (mmHg): 110 (QS system process) : 58 (QS system process) : 77 (QS system process) Pulse: 88 (QS system process) LaborFlag: Antepartum (QS system process) Datetime: 01/31/2017 18:28 NBP Sys/Rafaela/Mean (mmHg): 122 (QS system process) : 73 (QS system process) : 91 (QS system process) Pulse: 100 (QS system process) LaborFlag: Antepartum (QS system process) Datetime: 01/31/2017 18:23 Dilatation (cm): 4.5 (Kezia Hayes RN) Effacement (%): 70 (Kezia Hayes RN) Station: -1 (Kezia Hayes RN) Exam by: Franko Hayes RN (Kezia Hayes RN) Vaginal Bleeding: None (Kezia Hayes RN) Cervix, Consistency: Soft (Kezia Hayes RN) Cervix, Position: Midposition (Kezia Hayes RN) I/O Interventions: Fleming Cath Inserted (Kezia Hayes RN) Datetime: 01/31/2017 18:22 NBP Sys/Rafaela/Mean (mmHg): 128 (QS system process) : 77 (QS system process) : 95 (QS system process) Pulse: 98 (QS system process) LaborFlag: Antepartum (QS system process) Datetime: 01/31/2017 18:21 NBP Sys/Rafaela/Mean (mmHg): 138 (QS system process) : 66 (QS system process) : 93 (QS system process) Pulse: 102 (QS system process) LaborFlag: Antepartum (QS system process) Datetime: 01/31/2017 18:20 NBP Sys/Rafaela/Mean (mmHg): 125 (QS system process) : 65 (QS system process) : 89 (QS system process) Pulse: 93 (QS system process) LaborFlag: Antepartum (QS system process) Datetime: 01/31/2017 18:19 NBP Sys/Rafaela/Mean (mmHg): 137 (QS system process) : 72 (QS system process) : 97 (QS system process) Pulse: 100 (QS system process) LaborFlag: Antepartum (QS system process) Datetime: 01/31/2017 18:18 NBP Sys/Rafaela/Mean (mmHg): 136 (QS system process) : 64 (QS system process) : 92 (QS system process) Pulse: 100 (QS system process) LaborFlag: Antepartum (QS system process) Datetime: 01/31/2017 18:17 NBP Sys/Rafaela/Mean (mmHg): 133 (QS system process) : 61 (QS system process) : 88 (QS system process) Pulse: 100 (QS system process) LaborFlag: Antepartum (QS system process) Datetime: 01/31/2017 18:16 NBP Sys/Rafaela/Mean (mmHg): 143 (QS system process) : 72 (QS system process) : 98 (QS system process) Pulse: 102 (QS system process) LaborFlag: Antepartum (QS system process) Datetime: 01/31/2017 18:15 NBP Sys/Rafaela/Mean (mmHg): 151 (QS system process) : 78 (QS system process) : 105 (QS system process) Pulse: 96 (QS system process) LaborFlag: Antepartum (QS system process) Datetime: 01/31/2017 18:14 NBP Sys/Rafaela/Mean (mmHg): 134 (QS system process) : 80 (QS system process) : 101 (QS system process) Pulse: 111 (QS system process) LaborFlag: Antepartum (QS system process) Datetime: 01/31/2017 18:13 NBP Sys/Rafaela/Mean (mmHg): 132 (QS system process) : 71 (QS system process) : 95 (QS system process) Pulse: 98 (QS system process) LaborFlag: Antepartum (QS system process) Datetime: 01/31/2017 18:10 NBP Sys/Rafaela/Mean (mmHg): 143 (QS system process) : 72 (QS system process) : 103 (QS system process) Pulse: 97 (QS system process) Pulse: 99 (QS system process) SpO2 (%): 99 (QS system process) LaborFlag: Antepartum (QS system process) Datetime: 01/31/2017 18:09 NBP Sys/Rafaela/Mean (mmHg): 151 (QS system process) : 83 (QS system process) : 107 (QS system process) Pulse: 96 (QS system process) Epidural Procedure: Cath Placed; Loading Dose (Kezia Hayes RN) LaborFlag: Antepartum (QS system process) Datetime: 01/31/2017 18:08 NBP Sys/Rafaela/Mean (mmHg): 132 (QS system process) : 76 (QS system process) : 98 (QS system process) Pulse: 89 (QS system process) LaborFlag: Antepartum (QS system process) Datetime: 01/31/2017 18:07 NBP Sys/Rafaela/Mean (mmHg): 125 (QS system process) : 74 (QS system process) : 94 (QS system process) Pulse: 94 (QS system process) Epidural Procedure: Test Dose (Kezia Lattibeaudeir, RN) LaborFlag: Antepartum (QS system process) Datetime: 01/31/2017 18:05 Pulse: 101 (QS system process) SpO2 (%): 100 (QS system process) LaborFlag: Antepartum (QS system process) Datetime: 01/31/2017 18:04 Anesthesia Comments: Dr. Marroquin at bedside for epidural (Kezia Lattibeaudeir, RN) Datetime: 01/31/2017 17:30 Monitor Mode: External (Kezia Lattibeaudeir, RN) Frequency (min): 2-4 (Kezia Lattibeaudeir, RN) Quality: Moderate to Strong (Kezia Lattibeaudeir, RN) Duration (sec): 60-90 (Kezia Lattibeaudeir, RN) Resting Tone (Palpate): Relaxed (Kezia Lattibeaudeir, RN) Monitor Mode: External US (Kezia Lattibeaudeir, RN) FHR Baseline Rate : 145 (Kezia Lattibeaudeir, RN) Variability: Moderate 6-25 bpm (Kezia Lattibeaudeir, RN) Accelerations: 15X15 (Kezia Lattibeaudeir, RN) Pitocin (milliunit): Pitocin Remains (milliunits) @ 2 (Kezia Lattibeaudeir, RN) Datetime: 01/31/2017 17:24 Communication Comments: Called Dr. Marroquin and informed her of pt's request for epidural (Kezia Lattibeaudeir, RN) Datetime: 01/31/2017 17:20 I/O Interventions: Up to BR (Kezia Hiltonenoch, RN) Datetime: 01/31/2017 17:13 Procedure Verify: Correct Patient Identity; Correct Side and Site are Marked; Accurate Procedure Consent Form; Agreement on Procedure to be Done; Relevant Images and Results are Properly Labeled and Displayed (Kezia Hayes RN) Anesthesia Plans: Epidural (Kezia Hayes RN) Anesthesia Comments: Pt requested epidural, LR bolus started. (Kezia Hayes, THAD) Datetime: 01/31/2017 17:02 Communication Comments: REPORT GIVEN AND CARE RELINQUISHED AT THIS TIME (Ruthy Nava RN) Datetime: 01/31/2017 16:46 NBP Sys/Rafaela/Mean (mmHg): 152 (QS system process) : 91 (QS system process) : 110 (QS system process) Pulse: 112 (QS system process) Respirations: 18 (Ruthy Nava RN) LaborFlag: Antepartum (QS system process)
--- NOTE | 2017-02-01 04:46 | L&D Current Admission ---
Current Admit Datetime Report Generated by CPN: 02/01/2017 04:45 Current Admit Date/Time: 01/31/2017 15:14 (01/31/2017 15:09:Ruthy Nava RN) Reason for Admission: Rupture of Membranes (01/31/2017 15:09:Ruthy Nava RN) Chief Complaint: Suspected Rupture of Membranes (01/31/2017 20:00:Sai Guzman RN) Chief Complaint: Suspected Rupture of Membranes (01/31/2017 15:16:Ruthy Nava RN) EGA per Dates: 38.5 (01/31/2017 15:09:QS system process) Method of Arrival: Ambulatory (01/31/2017 15:09:Ruthy Nava RN) Admitted From: Home (01/31/2017 15:09:Ruthy Nava RN) Records Available: Yes (01/31/2017 15:09:Ruthy Nava RN) General Admission Information: Reviewed (01/31/2017 15:09:Ruthy Nava RN) Valuables/Personal Effects: Purse/Wallet; Cell Phone; Contact Lenses (01/31/2017 15:09:Ruthy Nava RN) Disposition of Belongings: Kept with Patient (01/31/2017 15:09:Ruthy Nava RN) Advance Direct for Healthcare: No, and Wants No Information (01/31/2017 15:09:Ruthy Nava RN) Durable Power of Tube Balancer: No (01/31/2017 15:09:Ruthy Nava RN) Living Will: No (01/31/2017 15:09:Ruthy Nava RN) Organ Donor: Yes (01/31/2017 15:09:Ruthy Nava RN) Pt Rights Information Given: Yes (01/31/2017 15:09:Ruthy Nava RN) Pt Understands Pt Rights: Yes (01/31/2017 15:09:Ruthy Nava RN) Knowledge Level: Understands L_D Process; Understands Care Activities (01/31/2017 15:09:Ruthy Nava RN) Barriers to Learning: Visual Deficit (01/31/2017 15:09:Ruthy Nava RN) Learning Readiness: Motivated (01/31/2017 15:09:Ruthy Nava RN) Learns Best By: 1 to 1 Instruction; Reading (01/31/2017 15:09:Ruthy Nava RN) Learning Needs: Labor and Delivery Process; Pain Management; Symptoms to Report; Treatment Plan; Medication; Diagnosis; Nutrition; Equipment; Care (01/31/2017 15:09:Ruthy Nava RN) Dom Viol Threatened/Hurt: No (01/31/2017 15:09:Ruthy Nava RN) Hx of Abuse/Neglect past 2yrs: No (01/31/2017 15:09:Ruthy Nava RN) Feel Unsafe Going Home: No (01/31/2017 15:09:Ruthy Nava RN) Addt'l Observ Indicating Abuse: No (01/31/2017 15:09:Ruthy Nava RN) Reason Unable to Complete Screen: N/A, Screen Completed (01/31/2017 15:09:Ruthy Nava RN) Considered Personal Harm/Suicide: No (01/31/2017 15:09:Ruthy Nava RN) Problem with Appetite >5 Days: No (01/31/2017 15:09:Ruthy Nava RN) Chew/Swallow Difficulties: No (01/31/2017 15:09:Ruthy Nava RN) Inappropriate Wt Gain/Loss: No (01/31/2017 15:09:Ruthy Nava RN) Presence Skin Breakdown/Ulcer: No (01/31/2017 15:09:Ruthy Nava RN) Special Diet: No (01/31/2017 15:09:Ruthy Nava RN) Pt Requests Palliative Care Nurse Practitioner Visit: No (01/31/2017 15:09:Ruthy Nava RN) Hx of Any of the Following?: N/A (01/31/2017 15:09:Ruthy Nava RN) New Diagnosis of: N/A (01/31/2017 15:09:Ruthy Nava RN) Requires Assist w/Ambulation: No (01/31/2017 15:09:Ruthy Nava RN) Uses Assist Device to Ambulate: No (01/31/2017 15:09:Ruthy Nava RN) Pt Requires Help w/ADL's: No (01/31/2017 15:09:Ruthy Nava RN)
[2017-02-01] MEDS: IBUPROFEN 800 MG TABLET PO SCH ×3 (05:27→22:48)
[2017-02-01 07:20] LABS: HEMATOCRIT 30.8 % (36.0-47.0); HEMOGLOBIN 10.1 g/dL (12.0-15.5); HGB HCT DIFFERENCE -0.5; MEAN CORPUSCULAR HEMOGLOBIN 25.4 pg (27.0-33.4); MEAN CORPUSCULAR HGB CONC 32.8 g/dL (32.0-36.0); MEAN CORPUSCULAR VOLUME 77 fl (80-97); RED BLOOD COUNT 3.97 10^6/uL (3.72-5.28); RED CELL DISTRIBUTION WIDTH 14.9 % (11.5-14.0); WHITE BLOOD COUNT 10.2 10^3/uL (4.0-10.5)
[2017-02-01] MEDS: DOCUSATE SODIUM 100 MG CAPSULE PO SCH ×2 (09:29→18:30)
[2017-02-01] MEDS: PRENATAL VITAMIN W-O CA NO5/FE FUMARATE/FA CAPSULE PO SCH (09:29)
[2017-02-01] MEDS: SENNOSIDES/DOCUSATE 8.6-50 MG 1 EACH TABLET PO SCH (09:29)
[2017-02-01] MEDS: FERROUS SULFATE 325 MG TABLET PO SCH ×2 (09:30→17:33)
--- NOTE | 2017-02-01 10:44 | PDOC PROGRESS REPORT ---
Subjective-OB Subjective: Post Delivery Day: 1 36 year old. Denies any needs at this time, states lochia is stable, pain well controlled, voiding without difficulty. Physical Exam (OB) Vital Signs: Temp Pulse Resp BP Pulse Ox 98.0 F 85 14 104/81 99 02/01/17 08:26 02/01/17 08:26 02/01/17 08:26 02/01/17 08:26 02/01/17 08:26 Intake & Output 01/31/17 02/01/17 02/02/17 06:59 06:59 06:59 Weight 80.05 kg - Lochia Lochia Amount: Small 10-25 ml Lochia Color: Rubra/Red - Abdomen Description: Tender, Soft Hernia Present: No Fundal Description: Firm, Midline Fundal Height: u/u - u/2 Objective-Diagnostic Laboratory: 02/01/17 07:03 01/31/17 01/31/17 01/31/17 14:22 15:04 15:04 WBC 9.3 RBC 4.30 Hgb 11.0 L Hct 33.1 L MCV 77 L MCH 25.6 L MCHC 33.2 RDW 14.9 H Plt Count 144 L Seg Neutrophils % 82.1 H Lymphocytes % 9.0 L Monocytes % 7.8 Eosinophils % 0.8 Basophils % 0.3 Absolute Neutrophils 7.6 Absolute Lymphocytes 0.8 Absolute Monocytes 0.7 Absolute Eosinophils 0.1 Absolute Basophils 0.0 Urine Color YELLOW Urine Appearance SLIGHTLY-CLOUDY Urine pH 6.0 Ur Specific [place]ette 1.006 Urine Protein NEGATIVE Urine Glucose (UA) NEGATIVE Urine Ketones NEGATIVE Urine Blood NEGATIVE Urine Nitrite NEGATIVE Ur Leukocyte Esterase LARGE H Blood Type O POSITIVE Antibody Screen NEGATIVE 02/01/17 07:03 WBC 10.2 RBC 3.97 Hgb 10.1 L Hct 30.8 L MCV 77 L MCH 25.4 L MCHC 32.8 RDW 14.9 H Plt Count 133 L Seg Neutrophils % Lymphocytes % Monocytes % Eosinophils % Basophils % Absolute Neutrophils Absolute Lymphocytes Absolute Monocytes Absolute Eosinophils Absolute Basophils Urine Color Urine Appearance Urine pH Ur Specific Gravette Urine Protein Urine Glucose (UA) Urine Ketones Urine Blood Urine Nitrite Ur Leukocyte Esterase Blood Type Antibody Screen Assessment and Plan(PN) - Assessment and Plan (1) Delivery normal Is this a current diagnosis for this admission?: YesPlan: routine post care - Time Spent with Patient Time with patient: Less than 15 minutes Critical Time spent with patient: Less than 15 minutes Medications reviewed and adjusted accordingly: Yes - Disposition Anticipated Discharge: Home Within: within 24 hours
[2017-02-02] MEDS: IBUPROFEN 800 MG TABLET PO SCH (05:44)
[2017-02-02 09:06] VITALS: BP 107/65
[2017-02-02] MEDS: FERROUS SULFATE 325 MG TABLET PO SCH (10:27)
[2017-02-02] MEDS: DOCUSATE SODIUM 100 MG CAPSULE PO SCH (10:27)
[2017-02-02] MEDS: PRENATAL VITAMIN W-O CA NO5/FE FUMARATE/FA CAPSULE PO SCH (10:27)
[2017-02-02] MEDS: SENNOSIDES/DOCUSATE 8.6-50 MG 1 EACH TABLET PO SCH (10:27)
--- NOTE | 2017-02-02 10:28 | PDOC DISCHARGE SUMMARY ---
Final Diagnosis Discharge Date: 02/02/17 - Final Diagnosis (1) Delivery normal Is this a current diagnosis for this admission?: Yes Discharge Data - Discharge Medication Home Medications: #57/Iron/FA/Dss/Dha [Extra-Virt Plus Dha Softgel] 1 tab PO DAILY Acetaminophen with Codeine [Tylenol #3 Tablet] 2 each PO Q4HP PRN #14 tablet Docusate Sodium [Colace 100 mg Capsule] 100 mg PO BID #60 capsule 02/02/17 Ibuprofen [Motrin 800 mg Tablet] 800 mg PO Q8 #60 tablet 02/02/17 Gestational Age: 38 Reason(s) for Admission: Onset of Labor, Advanced Maternal Age Procedures: NST - Data Baby 1 Male at 1 minute: 9 at 5 minutes: 9 Home with Mother: Yes Complications: No - Diagnosis Test Laboratory: Temp Pulse Resp BP Pulse Ox 98.2 F 69 15 107/65 98 02/02/17 08:02 02/02/17 08:02 02/02/17 08:02 02/02/17 08:02 02/02/17 08:02 01/31/17 01/31/17 02/01/17 14:22 15:04 07:03 RBC 4.30 3.97 Hgb 11.0 L 10.1 L Hct 33.1 L 30.8 L Urine Opiates Screen NEGATIVE - Discharge information/Instructions Discharge Activity: Activity As Tolerated, No Lifting Over 10 Pounds, Pelvic Rest, No tub bath Discharge Diet: Regular Disposition: HOME, SELF-CARE Follow up with: [facility] in: 4, Weeks
[2017-02-02] MEDS: ACETAMINOPHEN WITH CODEINE #3 TABLET PO PRN (11:39)
--- NOTE | 2017-02-02 16:46 | L&D Current Admission ---
Current Admit Datetime Report Generated by CPN: 02/02/2017 16:45 Current Admit Date/Time: 01/31/2017 15:14 (01/31/2017 15:09:Ruthy Nava RN) Reason for Admission: Rupture of Membranes (01/31/2017 15:09:Ruthy Nava RN) Chief Complaint: Suspected Rupture of Membranes (01/31/2017 20:00:Sai Guzman RN) Chief Complaint: Suspected Rupture of Membranes (01/31/2017 15:16:Ruthy Nava RN) EGA per Dates: 38.5 (01/31/2017 15:09:QS system process) Method of Arrival: Ambulatory (01/31/2017 15:09:Ruthy Nava RN) Admitted From: Home (01/31/2017 15:09:Ruthy Nava RN) Records Available: Yes (01/31/2017 15:09:Ruthy Nava RN) General Admission Information: Reviewed (01/31/2017 15:09:Ruthy Nava RN) Valuables/Personal Effects: Purse/Wallet; Cell Phone; Contact Lenses (01/31/2017 15:09:Ruthy Nava RN) Disposition of Belongings: Kept with Patient (01/31/2017 15:09:Ruthy Nava RN) Advance Direct for Healthcare: No, and Wants No Information (01/31/2017 15:09:Ruthy Nava RN) Durable Power of High Wire Artist: No (01/31/2017 15:09:Ruthy Nava RN) Living Will: No (01/31/2017 15:09:Ruthy Nava RN) Organ Donor: Yes (01/31/2017 15:09:Ruthy Nava RN) Pt Rights Information Given: Yes (01/31/2017 15:09:Ruthy Nava RN) Pt Understands Pt Rights: Yes (01/31/2017 15:09:Ruthy Nava RN) Knowledge Level: Understands L_D Process; Understands Care Activities (01/31/2017 15:09:Ruthy Nava RN) Barriers to Learning: Visual Deficit (01/31/2017 15:09:Ruthy Nava RN) Learning Readiness: Motivated (01/31/2017 15:09:Ruthy Nava RN) Learns Best By: 1 to 1 Instruction; Reading (01/31/2017 15:09:Ruthy Nava RN) Learning Needs: Labor and Delivery Process; Pain Management; Symptoms to Report; Treatment Plan; Medication; Diagnosis; Nutrition; Equipment; Care (01/31/2017 15:09:Ruthy Nava RN) Dom Viol Threatened/Hurt: No (01/31/2017 15:09:Ruthy Nava RN) Hx of Abuse/Neglect past 2yrs: No (01/31/2017 15:09:Ruthy Nava RN) Feel Unsafe Going Home: No (01/31/2017 15:09:Rtuhy Nava RN) Addt'l Observ Indicating Abuse: No (01/31/2017 15:09:Ruthy Nava RN) Reason Unable to Complete Screen: N/A, Screen Completed (01/31/2017 15:09:Ruthy Nava RN) Considered Personal Harm/Suicide: No (01/31/2017 15:09:Ruthy Nava RN) Problem with Appetite >5 Days: No (01/31/2017 15:09:Ruthy Nava RN) Chew/Swallow Difficulties: No (01/31/2017 15:09:Ruthy Nava RN) Inappropriate Wt Gain/Loss: No (01/31/2017 15:09:Ruthy Nava RN) Presence Skin Breakdown/Ulcer: No (01/31/2017 15:09:Ruthy Nava RN) Special Diet: No (01/31/2017 15:09:Ruthy Nava RN) Pt Requests Globe Tester Visit: No (01/31/2017 15:09:Ruthy Nava RN) Hx of Any of the Following?: N/A (01/31/2017 15:09:Ruthy Nava RN) New Diagnosis of: N/A (01/31/2017 15:09:Ruthy Nava RN) Requires Assist w/Ambulation: No (01/31/2017 15:09:Ruthy Nava RN) Uses Assist Device to Ambulate: No (01/31/2017 15:09:Ruthy Nava RN) Pt Requires Help w/ADL's: No (01/31/2017 15:09:Ruthy Nava RN)
--- NOTE | 2017-02-02 16:46 | L&D Discharge Summary ---
OB Discharge Summary Datetime Report Generated by CPN: 02/02/2017 16:45 DISCHARGE DIAGNOSIS Gestation: 38.5 Number of Babies in Womb: 1 Parity: 5
--- NOTE | 2017-02-02 16:46 | L&D Flow Sheet ---
LD Flowsheet Datetime Report Generated by CPN: 02/02/2017 16:45 Datetime: 01/31/2017 20:20 LaborFlag: Antepartum (QS system process) Datetime: 01/31/2017 20:19 LaborFlag: Antepartum (QS system process) Datetime: 01/31/2017 20:04 LaborFlag: Antepartum (QS system process) Datetime: 01/31/2017 20:00 LaborFlag: Antepartum (QS system process) Datetime: 01/31/2017 19:20 LaborFlag: Antepartum (QS system process) Datetime: 01/31/2017 19:04 LaborFlag: Antepartum (QS system process) Datetime: 01/31/2017 18:49 LaborFlag: Antepartum (QS system process) Datetime: 01/31/2017 18:32 LaborFlag: Antepartum (QS system process) Datetime: 01/31/2017 18:28 LaborFlag: Antepartum (QS system process) Datetime: 01/31/2017 18:22 LaborFlag: Antepartum (QS system process) Datetime: 01/31/2017 18:21 LaborFlag: Antepartum (QS system process) Datetime: 01/31/2017 18:20 LaborFlag: Antepartum (QS system process) Datetime: 01/31/2017 18:19 LaborFlag: Antepartum (QS system process) Datetime: 01/31/2017 18:18 LaborFlag: Antepartum (QS system process) Datetime: 01/31/2017 18:17 LaborFlag: Antepartum (QS system process) Datetime: 01/31/2017 18:16 LaborFlag: Antepartum (QS system process) Datetime: 01/31/2017 18:15 LaborFlag: Antepartum (QS system process) Datetime: 01/31/2017 18:14 LaborFlag: Antepartum (QS system process) Datetime: 01/31/2017 18:13 LaborFlag: Antepartum (QS system process) Datetime: 01/31/2017 18:10 LaborFlag: Antepartum (QS system process) Datetime: 01/31/2017 18:09 LaborFlag: Antepartum (QS system process) Datetime: 01/31/2017 18:08 LaborFlag: Antepartum (QS system process) Datetime: 01/31/2017 18:07 LaborFlag: Antepartum (QS system process) Datetime: 01/31/2017 18:05 LaborFlag: Antepartum (QS system process) Datetime: 01/31/2017 16:46 LaborFlag: Antepartum (QS system process) Datetime: 01/31/2017 15:54 Temperature (C): 37.5 (QS system process) LaborFlag: Antepartum (QS system process) Datetime: 01/31/2017 15:16 LaborFlag: Antepartum (QS system process)
--- NOTE | 2017-02-02 16:46 | L&D General Admission ---
General Admit Datetime Report Generated by CPN: 02/02/2017 16:45 Para: 5 (01/29/2017 15:59:Kezia Hayes RN) Term: 4 (01/29/2017 15:59:Kezia Hayes RN) Adequate Care: Yes (01/29/2017 15:59:Desirae Hendrix RN) Prepregnancy Weight (kg): 58.2 (01/29/2017 15:59:QS system process) Height (in): 65 (01/31/2017 14:35:QS system process) Height (in): 66 (01/29/2017 17:08:QS system process) Medication Allergy: No (01/29/2017 15:59:Ruthy Nava RN) Medication Allergies: No Known Allergies (01/31/2017) (01/31/2017 14:35:QS system process) Latex Allergy: No Latex Allergies (01/29/2017 15:59:Ruthy Nava RN) Food Allergies: none (01/29/2017 15:59:Ruthy Nava RN) Environmental Allergies: none (01/29/2017 15:59:Ruthy Nava RN) Primary Language: Citizen Of [place] (01/29/2017 15:59:Desirae Hendrix RN) Medical Tx Preferred Language: Citizen Of [place] (Annotations: Data stored by [facility] on behalf of user) (01/29/2017 15:59:Shanon Koehler RN) Communication Barrier(s): None (01/29/2017 15:59:Shanon Koehler RN) Alcohol: No (01/29/2017 15:59:Ruthy Nava RN) Cigarettes: Never Smoker. [id number] (01/29/2017 15:59:Ruthy Nava RN) Marijuana: No (01/29/2017 15:59:Ruthy Nava RN) Cocaine: No (01/29/2017 15:59:Ruthy Nava RN) Other Illicit Drugs: No (01/29/2017 15:59:Ruthy Nava RN) Influenza Vaccine: No (01/29/2017 15:59:Ruthy Nava RN) Pneumococcal Vaccine: No (01/29/2017 15:59:Ruthy Nava RN) Tetanus Vaccine: No (01/29/2017 15:59:Ruthy Nava RN) Tdap Vaccine: Yes (01/29/2017 15:59:Ruthy Nava RN) Hepatitis B Vaccine: No (01/29/2017 15:59:Ruthy Nava RN) Principal System Software Engineer: [facility] (01/29/2017 15:59:Ruthy Nava RN) Feeding Preference: Breast (01/29/2017 15:59:Ruthy Nava RN) Benefit of Breast Feed Discussed: Yes (01/29/2017 15:59:Ruthy Nava RN) Circumcision: Yes (01/29/2017 15:59:Ruthy Nava RN) Classes Attended: No (01/29/2017 15:59:Ruthy Nava RN) Tubal Ligation: No (01/29/2017 15:59:Ruthy Nava RN) Tubal Authorization Signed: N/A (01/29/2017 15:59:Ruthy Nava RN) Consent: N/A (01/29/2017 15:59:Ruthy Nava RN) Consent Signed: N/A (01/29/2017 15:59:Ruthy Nava RN) Pain Management Plans: Epidural (01/29/2017 15:59:Ruthy Nava RN) Plans for Labor and Delivery: Plan (01/29/2017 15:59:Ruthy Nava RN) Support Person: Carline Wadsworth (01/29/2017 15:59:Ruthy Nava RN) Support Person Relationship: Other (01/29/2017 15:59:Ruthy Nava RN) Cultural/Spritual Practice: No (01/29/2017 15:59:Ruthy Nava RN) Spir/Cult Dietary Needs: No (01/29/2017 15:59:Ruthy Nava RN) Living Arrangements: House (01/29/2017 15:59:Ruthy Nava RN) Adequate Access to:: Electric; Heat; Refrigeration; Plumbing/Running water; Phone; Transportation (01/29/2017 15:59:Ruthy Nava RN) WIC Program: No (01/29/2017 15:59:Ruthy Nava RN) Discharge C.O.D. Biller Person: Carline Wadsworth (01/29/2017 15:59:Ruthy Nava RN) Person to Help after Discharge: Carline Wadsworth (01/29/2017 15:59:Ruthy Nava RN) Currently Using Commun Resources: No (01/29/2017 15:59:Ruthy Nava RN) Outside Agency/Geochemistry Teacher: No (01/29/2017 15:59:Ruthy Nava RN) Car Seat for Discharge: No (01/29/2017 15:59:Ruthy Nava RN) Adoption Requested: No (01/29/2017 15:59:Ruthy Nava RN) Pt Contact w/infant Post : N/A (01/29/2017 15:59:Ruthy Nava RN) Blood Type: O Positive (01/29/2017 15:59:Desirae Hendrix RN) Antibody Screen: Negative (01/29/2017 15:59:Desirae Hendrix RN) Rho(G) this : Not Applicable (01/29/2017 15:59:Kezia Hayes RN) Hemoglobin: 10.1 L (02/01/2017 07:03:QS system process) Hemoglobin: 11.0 L (01/31/2017 15:04:QS system process) Hematocrit: 30.8 L (02/01/2017 07:03:QS system process) Hematocrit: 33.1 L (01/31/2017 15:04:QS system process) MCV: 77 L (02/01/2017 07:03:QS system process) MCV: 77 L (01/31/2017 15:04:QS system process) Group Beta Strep: Negative (01/29/2017 15:59:Desirae Hendrix RN) Gonorrhea: Negative (01/29/2017 15:59:Desirae Hendrix RN) Chlamydia: Negative (01/29/2017 15:59:Desirae Hendrix RN) RPR/VDRL: Nonreactive (01/29/2017 15:59:Desirae Hendrix RN) Hepatitis B: Negative (01/29/2017 15:59:Ruthy Nava RN) Rubella: Immune (01/29/2017 15:59:Desirae Hendrix RN) Previous Procedures: Ultrasound; NST; BPP (01/29/2017 15:59:Ruthy Nava RN) Current Procedures: Ultrasound; NST (01/29/2017 15:59:Ruthy Nava RN) History of Previous : No (01/29/2017 15:59:Ruthy Nava RN) History of Gestational Diabetes: No (01/29/2017 15:59:Ruthy Nava RN) History of PIH: No (01/29/2017 15:59:Ruthy Nava RN) History of Incompetent Cervix: No (01/29/2017 15:59:Ruthy Nava RN) History of Placenta Previa/Abrup: No (01/29/2017 15:59:Ruthy Nava RN) History of Macrosomia: No (01/29/2017 15:59:Ruthy Nava RN) History of IUGR: No (01/29/2017 15:59:Ruthy Nava RN) History of Hemorrhage: No (01/29/2017 15:59:Ruthy Nava RN) History of Loss/Stillborn: No (01/29/2017 15:59:Ruthy Nava RN) History of : No (01/29/2017 15:59:Ruthy Nava RN) History of D (Rh) Sensitization: No (01/29/2017 15:59:Ruthy Nava RN) History Recurrent Loss/Stillborn: No (01/29/2017 15:59:Ruthy Nava RN) History Depression/PP Depression: No (01/29/2017 15:59:Ruthy Nava RN) History of Uterine Anomaly/AYAZ: No (01/29/2017 15:59:Ruthy Nava RN) History of Infertility: No (01/29/2017 15:59:Ruthy Nava RN) History of ART Treatment: No (01/29/2017 15:59:Ruthy Nava RN) History of AYAZ: No (01/29/2017 15:59:Ruthy Nava RN) Comments Obstetrical History: G1- 2007 G2- 2007 G3- SAB 2008 G4- SAB 2010 G5- 2010 G6- SAB 2011 G7- 2012 G8- 2014 G9- CURRENT (01/29/2017 15:59:Ruthy Nava RN) Med Hx Diabetes: No (01/29/2017 15:59:Ruthy Nava RN) Med Hx Hypertension: No (01/29/2017 15:59:Ruthy Nava RN) Med Hx Heart Disease: No (01/29/2017 15:59:Ruthy Nava RN) Med Hx Autoimmune Disorder: No (01/29/2017 15:59:Ruthy Nava RN) Med Hx Kidney Disease/UTI: No (01/29/2017 15:59:Ruthy Nava RN) Med Hx Neurologic/Epilepsy: No (01/29/2017 15:59:Ruthy Nava RN) Med Hx Psychiatric Disorders: No (01/29/2017 15:59:Ruthy Nava RN) Med Hx Hepatitis/Liver Disease: No (01/29/2017 15:59:Ruthy Nava RN) Med Hx Varicosities/Phlebitis: No (01/29/2017 15:59:Ruthy Nava RN) Med Hx Thyroid Dysfunction: No (01/29/2017 15:59:Ruthy Nava RN) Med Hx Trauma/Violence: No (01/29/2017 15:59:Ruthy Nava RN) Med Hx Blood Transfusion: Yes (01/29/2017 15:59:Kezia Hayes RN) Med Hx Pulmonary (Asthma,TB): No (01/29/2017 15:59:Ruthy Nava RN) Med Hx Breast: No (01/29/2017 15:59:Ruthy Nava RN) Med Hx DIRECTIONAL DRILLER Surgery: No (01/29/2017 15:59:Ruthy Nava RN) Med Hx Hospitalization/Surgery: Yes (01/29/2017 15:59:Kezia Hayes RN) Med Hx Anesthetic Complications: No (01/29/2017 15:59:Ruthy Nava RN) Med Hx Abnormal Pap Smear: No (01/29/2017 15:59:Ruthy Nava RN) Other Medical Diseases: No (01/29/2017 15:59:Ruthy Nava RN) Med Hx Significant Family Hx: No (01/29/2017 15:59:Ruthy Nava RN) Details of Med/Surg Hx: childbirth; blood transfusion after twin delivery. (01/29/2017 15:59:Kezia Hayes RN) Inf Hx Gonorrhea: No (01/29/2017 15:59:Ruthy Nava RN) Inf Hx Chlamydia: No (01/29/2017 15:59:Ruthy Nava RN) Inf Hx Syphilis: No (01/29/2017 15:59:Ruthy Nava RN) Inf Hx HIV/AIDS: No (01/29/2017 15:59:Ruthy Nava RN) Inf Hx Human Papilloma Virus: No (01/29/2017 15:59:Ruthy Nava RN) Inf Hx Pt/Partner Genital Herpes: No (01/29/2017 15:59:Ruthy Nava RN) Inf Hx Tuberculosis/Exposure: No (01/29/2017 15:59:Ruthy Nava RN) Inf Hx Hepatitis B,C: No (01/29/2017 15:59:Ruthy Nava RN) Inf Hx Rash or Viral Illness: No (01/29/2017 15:59:Ruthy Nava RN) Gen Hx Age >=35 at DELON: No (01/29/2017 15:59:Ruthy Nava RN) Gen Hx Thalassemia: No (01/29/2017 15:59:Ruthy Nava RN) Gen Hx Congenital Heart Defect: No (01/29/2017 15:59:Ruthy Nava RN) Gen Hx Neural Tube Defect: No (01/29/2017 15:59:Ruthy Nava RN) Gen Hx Down's Syndrome: No (01/29/2017 15:59:Ruthy Nava RN) Gen Hx Mick-Sachs: No (01/29/2017 15:59:Ruthy Nava RN) Gen Hx Víctor: No (01/29/2017 15:59:Ruthy Nava RN) Gen Hx Familial Dysautonomia: No (01/29/2017 15:59:Ruthy Nava RN) Gen Hx Sickle Cell Disease/Trait: No (01/29/2017 15:59:Ruthy Nava RN) Gen Hx Hemophilia/Blood Disorder: No (01/29/2017 15:59:Ruthy Nava RN) Gen Hx Muscular Dystrophy: No (01/29/2017 15:59:Ruthy Nava RN) Gen Hx Cystic Fibrosis: No (01/29/2017 15:59:Ruthy Nava RN) Gen Hx Huntingtons Chorea: No (01/29/2017 15:59:Ruthy Nava RN) Gen Hx Mental Retardation/Autism: No (01/29/2017 15:59:Ruthy Nava RN) Gen Hx Tested for Fragile X: No (01/29/2017 15:59:Ruthy Nava RN) Gen Hx Other Inher/Chromosomal: No (01/29/2017 15:59:Rutyh Nava RN) Gen Hx Maternal Metabolic DO: No (01/29/2017 15:59:Ruthy Nava RN) Gen Hx Pt Father or FOB Defect: No (01/29/2017 15:59:Ruthy Nava RN) Gen Hx Other Genetic History: No (01/29/2017 15:59:Ruthy Nava RN) Gen Hx Drugs/Meds since LMP: No (01/29/2017 15:59:Ruthy Nava RN)
--- NOTE | 2017-02-02 22:46 | L&D Discharge Summary ---
OB Discharge Summary Datetime Report Generated by CPN: 02/02/2017 22:45 DISCHARGE DIAGNOSIS Gestation: 38.5 Number of Babies in Womb: 1 Parity: 5
--- NOTE | 2017-02-02 22:46 | L&D General Admission ---
General Admit Datetime Report Generated by CPN: 02/02/2017 22:45 Para: 5 (01/29/2017 15:59:Kezia Hayes RN) Term: 4 (01/29/2017 15:59:Kezia Hayes RN) Adequate Care: Yes (01/29/2017 15:59:Desirae Hendrix RN) Prepregnancy Weight (kg): 58.2 (01/29/2017 15:59:QS system process) Height (in): 65 (01/31/2017 14:35:QS system process) Height (in): 66 (01/29/2017 17:08:QS system process) Medication Allergy: No (01/29/2017 15:59:Ruthy Nava RN) Medication Allergies: No Known Allergies (01/31/2017) (01/31/2017 14:35:QS system process) Latex Allergy: No Latex Allergies (01/29/2017 15:59:Ruhty Nava RN) Food Allergies: none (01/29/2017 15:59:Ruthy Nava RN) Environmental Allergies: none (01/29/2017 15:59:Ruthy Nava RN) Primary Language: [place] (01/29/2017 15:59:Desirae Hendrix RN) Medical Tx Preferred Language: [place] (Annotations: Data stored by [facility] on behalf of user) (01/29/2017 15:59:Shanon Koehler RN) Communication Barrier(s): None (01/29/2017 15:59:Shanon Koehler RN) Alcohol: No (01/29/2017 15:59:Ruthy Nava RN) Cigarettes: Never Smoker. [id number] (01/29/2017 15:59:Ruthy Nava RN) Marijuana: No (01/29/2017 15:59:Ruthy Nava RN) Cocaine: No (01/29/2017 15:59:Ruthy Nava RN) Other Illicit Drugs: No (01/29/2017 15:59:Ruthy Nava RN) Influenza Vaccine: No (01/29/2017 15:59:Ruthy Nava RN) Pneumococcal Vaccine: No (01/29/2017 15:59:Ruthy Nava RN) Tetanus Vaccine: No (01/29/2017 15:59:Ruthy Nava RN) Tdap Vaccine: Yes (01/29/2017 15:59:Ruthy Nava RN) Hepatitis B Vaccine: No (01/29/2017 15:59:Ruthy Nava RN) Translator/Interpreter: [facility] (01/29/2017 15:59:Ruthy Nava RN) Feeding Preference: Breast (01/29/2017 15:59:Ruthy Nava RN) Benefit of Breast Feed Discussed: Yes (01/29/2017 15:59:Ruthy Nava RN) Circumcision: Yes (01/29/2017 15:59:Ruthy Nava RN) Classes Attended: No (01/29/2017 15:59:Ruthy Nava RN) Tubal Ligation: No (01/29/2017 15:59:Ruthy Nava RN) Tubal Authorization Signed: N/A (01/29/2017 15:59:Ruthy Nava RN) Consent: N/A (01/29/2017 15:59:Ruthy Nava RN) Consent Signed: N/A (01/29/2017 15:59:Ruthy Nava RN) Pain Management Plans: Epidural (01/29/2017 15:59:Ruthy Nava RN) Plans for Labor and Delivery: Plan (01/29/2017 15:59:Ruthy Nava RN) Support Person: Carline Wadsworth (01/29/2017 15:59:Ruthy Nava RN) Support Person Relationship: Other (01/29/2017 15:59:Ruthy Nava RN) Cultural/Spritual Practice: No (01/29/2017 15:59:Ruthy Nava RN) Spir/Cult Dietary Needs: No (01/29/2017 15:59:Ruthy Nava RN) Living Arrangements: House (01/29/2017 15:59:Ruthy Nava RN) Adequate Access to:: Electric; Heat; Refrigeration; Plumbing/Running water; Phone; Transportation (01/29/2017 15:59:Ruthy Nava RN) WIC Program: No (01/29/2017 15:59:Ruthy Nava RN) Discharge Aircraft Engine Technician Person: Carline Wadsworth (01/29/2017 15:59:Ruthy Nava RN) Person to Help after Discharge: Carline Wadsworth (01/29/2017 15:59:Ruthy Nava RN) Currently Using Commun Resources: No (01/29/2017 15:59:Ruthy Nava RN) Outside Agency/Biochemistry Technician: No (01/29/2017 15:59:Ruthy Nava RN) Car Seat for Discharge: No (01/29/2017 15:59:Ruthy Nava RN) Adoption Requested: No (01/29/2017 15:59:Ruthy Nava RN) Pt Contact w/infant Post : N/A (01/29/2017 15:59:Ruthy Nava RN) Blood Type: O Positive (01/29/2017 15:59:Desirae Hendrix RN) Antibody Screen: Negative (01/29/2017 15:59:Desirae Hendrix RN) Rho(G) this : Not Applicable (01/29/2017 15:59:Kezia Hayes RN) Hemoglobin: 10.1 L (02/01/2017 07:03:QS system process) Hemoglobin: 11.0 L (01/31/2017 15:04:QS system process) Hematocrit: 30.8 L (02/01/2017 07:03:QS system process) Hematocrit: 33.1 L (01/31/2017 15:04:QS system process) MCV: 77 L (02/01/2017 07:03:QS system process) MCV: 77 L (01/31/2017 15:04:QS system process) Group Beta Strep: Negative (01/29/2017 15:59:Desirae Hendrix RN) Gonorrhea: Negative (01/29/2017 15:59:Desirae Hendrix RN) Chlamydia: Negative (01/29/2017 15:59:Desirae Hendrix RN) RPR/VDRL: Nonreactive (01/29/2017 15:59:Desirae Hendrix RN) Hepatitis B: Negative (01/29/2017 15:59:Ruthy Nava RN) Rubella: Immune (01/29/2017 15:59:Desirae Hendrix RN) Previous Procedures: Ultrasound; NST; BPP (01/29/2017 15:59:Ruthy Nava RN) Current Procedures: Ultrasound; NST (01/29/2017 15:59:Ruthy Nava RN) History of Previous : No (01/29/2017 15:59:Ruthy Nava RN) History of Gestational Diabetes: No (01/29/2017 15:59:Ruthy Nava RN) History of PIH: No (01/29/2017 15:59:Ruthy Nava RN) History of Incompetent Cervix: No (01/29/2017 15:59:Ruhty Nava RN) History of Placenta Previa/Abrup: No (01/29/2017 15:59:Ruthy Nava RN) History of Macrosomia: No (01/29/2017 15:59:Ruthy Nava RN) History of IUGR: No (01/29/2017 15:59:Ruthy Nava RN) History of Hemorrhage: No (01/29/2017 15:59:Ruthy Nava RN) History of Loss/Stillborn: No (01/29/2017 15:59:Ruthy Nava RN) History of : No (01/29/2017 15:59:Ruthy Nava RN) History of D (Rh) Sensitization: No (01/29/2017 15:59:Ruthy Nava RN) History Recurrent Loss/Stillborn: No (01/29/2017 15:59:Ruthy Nava RN) History Depression/PP Depression: No (01/29/2017 15:59:Ruthy Nava RN) History of Uterine Anomaly/AYAZ: No (01/29/2017 15:59:Ruthy Nava RN) History of Infertility: No (01/29/2017 15:59:Ruthy Nava RN) History of ART Treatment: No (01/29/2017 15:59:Ruthy Nava RN) History of AYAZ: No (01/29/2017 15:59:Ruthy Nava RN) Comments Obstetrical History: G1- 2007 G2- 2007 G3- SAB 2008 G4- SAB 2010 G5- 2010 G6- SAB 2011 G7- 2012 G8- 2014 G9- CURRENT (01/29/2017 15:59:Ruthy Nava RN) Med Hx Diabetes: No (01/29/2017 15:59:Ruthy Nava RN) Med Hx Hypertension: No (01/29/2017 15:59:Ruthy Nava RN) Med Hx Heart Disease: No (01/29/2017 15:59:Ruthy Nava RN) Med Hx Autoimmune Disorder: No (01/29/2017 15:59:Ruthy Nava RN) Med Hx Kidney Disease/UTI: No (01/29/2017 15:59:Ruthy Nava RN) Med Hx Neurologic/Epilepsy: No (01/29/2017 15:59:Ruthy Nava RN) Med Hx Psychiatric Disorders: No (01/29/2017 15:59:Ruthy Nava RN) Med Hx Hepatitis/Liver Disease: No (01/29/2017 15:59:Ruthy Nava RN) Med Hx Varicosities/Phlebitis: No (01/29/2017 15:59:Ruthy Nava RN) Med Hx Thyroid Dysfunction: No (01/29/2017 15:59:Ruthy Nava RN) Med Hx Trauma/Violence: No (01/29/2017 15:59:Ruthy Nava RN) Med Hx Blood Transfusion: Yes (01/29/2017 15:59:Kezia Hayes RN) Med Hx Pulmonary (Asthma,TB): No (01/29/2017 15:59:Ruthy Nava RN) Med Hx Breast: No (01/29/2017 15:59:Ruthy Nava RN) Med Hx WHEEL PRESS CLERK Surgery: No (01/29/2017 15:59:Ruthy Nava RN) Med Hx Hospitalization/Surgery: Yes (01/29/2017 15:59:Kezia Hayes RN) Med Hx Anesthetic Complications: No (01/29/2017 15:59:Ruthy Nava RN) Med Hx Abnormal Pap Smear: No (01/29/2017 15:59:Ruthy Nava RN) Other Medical Diseases: No (01/29/2017 15:59:Ruthy Nava RN) Med Hx Significant Family Hx: No (01/29/2017 15:59:Ruthy Nava RN) Details of Med/Surg Hx: childbirth; blood transfusion after twin delivery. (01/29/2017 15:59:Kezia Hayes RN) Inf Hx Gonorrhea: No (01/29/2017 15:59:Ruthy Nava RN) Inf Hx Chlamydia: No (01/29/2017 15:59:Ruthy Nava RN) Inf Hx Syphilis: No (01/29/2017 15:59:Ruthy Nava RN) Inf Hx HIV/AIDS: No (01/29/2017 15:59:Ruthy Nava RN) Inf Hx Human Papilloma Virus: No (01/29/2017 15:59:Ruthy Nava RN) Inf Hx Pt/Partner Genital Herpes: No (01/29/2017 15:59:Ruthy Nava RN) Inf Hx Tuberculosis/Exposure: No (01/29/2017 15:59:Ruthy Nava RN) Inf Hx Hepatitis B,C: No (01/29/2017 15:59:Ruthy Nava RN) Inf Hx Rash or Viral Illness: No (01/29/2017 15:59:Ruthy Nava RN) Gen Hx Age >=35 at DELON: No (01/29/2017 15:59:Ruthy Nava RN) Gen Hx Thalassemia: No (01/29/2017 15:59:Ruthy Nava RN) Gen Hx Congenital Heart Defect: No (01/29/2017 15:59:Ruthy Nava RN) Gen Hx Neural Tube Defect: No (01/29/2017 15:59:Ruthy Nava RN) Gen Hx Down's Syndrome: No (01/29/2017 15:59:Ruthy Nava RN) Gen Hx Mick-Sachs: No (01/29/2017 15:59:Ruthy Nava RN) Gen Hx Víctor: No (01/29/2017 15:59:Ruthy Nava RN) Gen Hx Familial Dysautonomia: No (01/29/2017 15:59:Ruthy Nava RN) Gen Hx Sickle Cell Disease/Trait: No (01/29/2017 15:59:Ruthy Nava RN) Gen Hx Hemophilia/Blood Disorder: No (01/29/2017 15:59:Ruthy Nava RN) Gen Hx Muscular Dystrophy: No (01/29/2017 15:59:Ruthy Nava RN) Gen Hx Cystic Fibrosis: No (01/29/2017 15:59:Ruthy Nava RN) Gen Hx Huntingtons Chorea: No (01/29/2017 15:59:Ruthy Nava RN) Gen Hx Mental Retardation/Autism: No (01/29/2017 15:59:Ruthy Nava RN) Gen Hx Tested for Fragile X: No (01/29/2017 15:59:Ruthy Nava RN) Gen Hx Other Inher/Chromosomal: No (01/29/2017 15:59:Ruthy Nava RN) Gen Hx Maternal Metabolic DO: No (01/29/2017 15:59:Ruthy Nava RN) Gen Hx Pt Father or FOB Defect: No (01/29/2017 15:59:Ruthy Nava RN) Gen Hx Other Genetic History: No (01/29/2017 15:59:Ruthy Nava RN) Gen Hx Drugs/Meds since LMP: No (01/29/2017 15:59:Ruthy Nava RN)
--- NOTE | 2017-02-02 22:46 | L&D Current Admission ---
Current Admit Datetime Report Generated by CPN: 02/02/2017 22:45 Current Admit Date/Time: 01/31/2017 15:14 (01/31/2017 15:09:Ruthy Nava RN) Reason for Admission: Rupture of Membranes (01/31/2017 15:09:Ruthy Nava RN) Chief Complaint: Suspected Rupture of Membranes (01/31/2017 20:00:Sai Guzman RN) Chief Complaint: Suspected Rupture of Membranes (01/31/2017 15:16:Ruthy Nava RN) EGA per Dates: 38.5 (01/31/2017 15:09:QS system process) Method of Arrival: Ambulatory (01/31/2017 15:09:Ruthy Nava RN) Admitted From: Home (01/31/2017 15:09:Ruthy Nava RN) Records Available: Yes (01/31/2017 15:09:Ruthy Nava RN) General Admission Information: Reviewed (01/31/2017 15:09:Ruthy Nava RN) Valuables/Personal Effects: Purse/Wallet; Cell Phone; Contact Lenses (01/31/2017 15:09:Ruthy Nava RN) Disposition of Belongings: Kept with Patient (01/31/2017 15:09:Ruthy Nava RN) Advance Direct for Healthcare: No, and Wants No Information (01/31/2017 15:09:Ruthy Nava RN) Durable Power of Otr Flatbed Driver: No (01/31/2017 15:09:Ruthy Nava RN) Living Will: No (01/31/2017 15:09:Ruthy Nava RN) Organ Donor: Yes (01/31/2017 15:09:Ruthy Nava RN) Pt Rights Information Given: Yes (01/31/2017 15:09:Ruthy Nava RN) Pt Understands Pt Rights: Yes (01/31/2017 15:09:Ruthy Nava RN) Knowledge Level: Understands L_D Process; Understands Care Activities (01/31/2017 15:09:Ruthy Nava RN) Barriers to Learning: Visual Deficit (01/31/2017 15:09:Ruthy Nava RN) Learning Readiness: Motivated (01/31/2017 15:09:Ruthy Nava RN) Learns Best By: 1 to 1 Instruction; Reading (01/31/2017 15:09:Ruthy Nava RN) Learning Needs: Labor and Delivery Process; Pain Management; Symptoms to Report; Treatment Plan; Medication; Diagnosis; Nutrition; Equipment; Care (01/31/2017 15:09:Ruthy Nava RN) Dom Viol Threatened/Hurt: No (01/31/2017 15:09:Ruthy Nava RN) Hx of Abuse/Neglect past 2yrs: No (01/31/2017 15:09:Ruthy Nava RN) Feel Unsafe Going Home: No (01/31/2017 15:09:Ruthy Nava RN) Addt'l Observ Indicating Abuse: No (01/31/2017 15:09:Ruthy Nava RN) Reason Unable to Complete Screen: N/A, Screen Completed (01/31/2017 15:09:Ruthy Nava RN) Considered Personal Harm/Suicide: No (01/31/2017 15:09:Ruthy Nava RN) Problem with Appetite >5 Days: No (01/31/2017 15:09:Ruthy Nava RN) Chew/Swallow Difficulties: No (01/31/2017 15:09:Ruthy Nava RN) Inappropriate Wt Gain/Loss: No (01/31/2017 15:09:Ruthy Nava RN) Presence Skin Breakdown/Ulcer: No (01/31/2017 15:09:Ruthy Nava RN) Special Diet: No (01/31/2017 15:09:Ruthy Nava RN) Pt Requests Fire Support Specialist Visit: No (01/31/2017 15:09:Ruthy Nava RN) Hx of Any of the Following?: N/A (01/31/2017 15:09:Ruthy Nava RN) New Diagnosis of: N/A (01/31/2017 15:09:Ruthy Nava RN) Requires Assist w/Ambulation: No (01/31/2017 15:09:Ruthy Nava RN) Uses Assist Device to Ambulate: No (01/31/2017 15:09:Ruthy Nava RN) Pt Requires Help w/ADL's: No (01/31/2017 15:09:Ruthy Nava RN)
--- NOTE | 2017-02-03 04:47 | L&D Discharge Summary ---
OB Discharge Summary Datetime Report Generated by CPN: 02/03/2017 04:45 DISCHARGE DIAGNOSIS Gestation: 38.5 Number of Babies in Womb: 1 Parity: 5
--- NOTE | 2017-02-03 04:47 | L&D Admission Assessment ---
LD ADM ASMT Datetime Report Generated by CPN: 02/03/2017 04:45 Weight (lb): 176 (02/02/2017 10:28:QS system process) Weight (lb): 176 (02/01/2017 07:50:QS system process) Weight (kg): 80.0 (02/02/2017 10:28:QS system process) Weight (kg): 80.0 (02/01/2017 07:50:QS system process) Total Wt Gain (lb): 48 (02/02/2017 10:28:QS system process) Total Wt Gain (lb): 48 (02/01/2017 07:50:QS system process) Wt Gain (kg): 21.8 (02/02/2017 10:28:QS system process) Wt Gain (kg): 21.8 (02/01/2017 07:50:QS system process) BMI: 29.3 (02/02/2017 10:28:QS system process) BMI: 29.3 (02/01/2017 07:50:QS system process)
--- NOTE | 2017-02-03 04:47 | L&D General Admission ---
General Admit Datetime Report Generated by CPN: 02/03/2017 04:45 Hemoglobin: 10.1 L (02/01/2017 07:03:QS system process) Hematocrit: 30.8 L (02/01/2017 07:03:QS system process) MCV: 77 L (02/01/2017 07:03:QS system process)
--- NOTE | 2017-02-03 10:46 | L&D Current Admission ---
Current Admit Datetime Report Generated by CPN: 02/03/2017 10:45 Current Admit Date/Time: 01/31/2017 15:14 (01/31/2017 15:09:Ruthy Nava RN) Reason for Admission: Rupture of Membranes (01/31/2017 15:09:Ruthy Nava RN) Chief Complaint: Suspected Rupture of Membranes (01/31/2017 20:00:Sai Guzman RN) Chief Complaint: Suspected Rupture of Membranes (01/31/2017 15:16:Ruthy Nava RN) EGA per Dates: 38.5 (01/31/2017 15:09:QS system process) Method of Arrival: Ambulatory (01/31/2017 15:09:Ruthy Nava RN) Admitted From: Home (01/31/2017 15:09:Ruthy Nava RN) Records Available: Yes (01/31/2017 15:09:Ruthy Nava RN) General Admission Information: Reviewed (01/31/2017 15:09:Ruthy Nava RN) Valuables/Personal Effects: Purse/Wallet; Cell Phone; Contact Lenses (01/31/2017 15:09:Ruthy Nava RN) Disposition of Belongings: Kept with Patient (01/31/2017 15:09:Ruthy Nava RN) Advance Direct for Healthcare: No, and Wants No Information (01/31/2017 15:09:Ruthy Nava RN) Durable Power of Solutions Architect: No (01/31/2017 15:09:Ruthy Nava RN) Living Will: No (01/31/2017 15:09:Ruthy Nava RN) Organ Donor: Yes (01/31/2017 15:09:Ruthy Nava RN) Pt Rights Information Given: Yes (01/31/2017 15:09:Ruthy Nava RN) Pt Understands Pt Rights: Yes (01/31/2017 15:09:Ruthy Nava RN) Knowledge Level: Understands L_D Process; Understands Care Activities (01/31/2017 15:09:Ruthy Nava RN) Barriers to Learning: Visual Deficit (01/31/2017 15:09:Ruthy Nava RN) Learning Readiness: Motivated (01/31/2017 15:09:Ruthy Nava RN) Learns Best By: 1 to 1 Instruction; Reading (01/31/2017 15:09:Ruthy Nava RN) Learning Needs: Labor and Delivery Process; Pain Management; Symptoms to Report; Treatment Plan; Medication; Diagnosis; Nutrition; Equipment; Care (01/31/2017 15:09:Ruthy Nava RN) Dom Viol Threatened/Hurt: No (01/31/2017 15:09:Ruthy Nava RN) Hx of Abuse/Neglect past 2yrs: No (01/31/2017 15:09:Ruthy Nava RN) Feel Unsafe Going Home: No (01/31/2017 15:09:Rtuhy Nava RN) Addt'l Observ Indicating Abuse: No (01/31/2017 15:09:Ruthy Nava RN) Reason Unable to Complete Screen: N/A, Screen Completed (01/31/2017 15:09:Ruthy Nava RN) Considered Personal Harm/Suicide: No (01/31/2017 15:09:Ruthy Nava RN) Problem with Appetite >5 Days: No (01/31/2017 15:09:Ruthy Nava RN) Chew/Swallow Difficulties: No (01/31/2017 15:09:Ruthy Nava RN) Inappropriate Wt Gain/Loss: No (01/31/2017 15:09:Ruthy Nava RN) Presence Skin Breakdown/Ulcer: No (01/31/2017 15:09:Ruthy Nava RN) Special Diet: No (01/31/2017 15:09:Ruthy Nava RN) Pt Requests Sharepoint Application Architect Visit: No (01/31/2017 15:09:Ruthy Nava RN) Hx of Any of the Following?: N/A (01/31/2017 15:09:Ruthy Nava RN) New Diagnosis of: N/A (01/31/2017 15:09:Ruthy Nava RN) Requires Assist w/Ambulation: No (01/31/2017 15:09:Ruthy Nava RN) Uses Assist Device to Ambulate: No (01/31/2017 15:09:Ruthy Nava RN) Pt Requires Help w/ADL's: No (01/31/2017 15:09:Ruthy Nava RN)
--- NOTE | 2017-02-03 10:46 | L&D Discharge Summary ---
OB Discharge Summary Datetime Report Generated by CPN: 02/03/2017 10:45 DISCHARGE DIAGNOSIS Gestation: 38.5 Number of Babies in Womb: 1 Parity: 5
--- NOTE | 2017-02-03 10:46 | L&D General Admission ---
General Admit Datetime Report Generated by N: 02/03/2017 10:45 Height (in): 65 (01/31/2017 14:35:QS system process) Medication Allergies: No Known Allergies (01/31/2017) (01/31/2017 14:35:QS system process) Hemoglobin: 10.1 L (02/01/2017 07:03:QS system process) Hemoglobin: 11.0 L (01/31/2017 15:04:QS system process) Hematocrit: 30.8 L (02/01/2017 07:03:QS system process) Hematocrit: 33.1 L (01/31/2017 15:04:QS system process) MCV: 77 L (02/01/2017 07:03:QS system process) MCV: 77 L (01/31/2017 15:04:QS system process)
--- NOTE | 2017-02-03 10:46 | L&D Admission Assessment ---
LD ADM ASMT Datetime Report Generated by CPN: 02/03/2017 10:45 Weight (lb): 176 (02/02/2017 10:28:QS system process) Weight (kg): 80.0 (02/02/2017 10:28:QS system process) Total Wt Gain (lb): 48 (02/02/2017 10:28:QS system process) Wt Gain (kg): 21.8 (02/02/2017 10:28:QS system process) BMI: 29.3 (02/02/2017 10:28:QS system process)
--- NOTE | 2017-02-03 16:46 | L&D Discharge Summary ---
OB Discharge Summary Datetime Report Generated by CPN: 02/03/2017 16:45 DISCHARGE DIAGNOSIS Gestation: 38.5 Number of Babies in Womb: 1 Parity: 5
--- NOTE | 2017-02-03 22:45 | L&D Discharge Summary ---
OB Discharge Summary Datetime Report Generated by CPN: 02/03/2017 22:45 DISCHARGE DIAGNOSIS Gestation: 38.5 Number of Babies in Womb: 1 Parity: 5
--- NOTE | 2017-02-04 04:45 | L&D Discharge Summary ---
OB Discharge Summary Datetime Report Generated by CPN: 02/04/2017 04:45 DISCHARGE DIAGNOSIS Gestation: 38.5 Number of Babies in Womb: 1 Parity: 5
--- NOTE | 2017-02-04 10:45 | L&D Discharge Summary ---
OB Discharge Summary Datetime Report Generated by CPN: 02/04/2017 10:45 DISCHARGE DIAGNOSIS Gestation: 38.5 Number of Babies in Womb: 1 Parity: 5
--- NOTE | 2017-02-07 08:38 | Admission Physical ---
Datetime Report Generated by CPN: 02/07/2017 08:38 CURRENT ADMISSION Chief Complaint: Suspected Ruptured Membranes Indication for Induction: Not Applicable Admit Plan: Admit to Unit; Initiate Labor Protocol ALLERGIES Medication Allergies: No Medication Allergies: No Known Allergies (01/31/2017) Medication Allergies: No Known Allergies (12/03/2014) Latex: No Latex Allergies Food Allergies: none Environmental Allergies: none OBSTETRICAL HISTORY EDC: 02/09/2017 00:00 : 9 : 1 SAB: 3 IAB: 0 Ectopic: 0 Livin Cesareans: 0 VBACs: 0 Multiple Births: 1 SEE RECORDS Alcohol: No Marijuana : No Cocaine: No Other Illicit Drugs: No Cigarettes: Never Smoker. [id number] PHYSICAL EXAM General: Normal HEENT: Deferred Neurologic: Normal Thyroid: Deferred Heart: Normal Lungs: Deferred Breast: Deferred Back: Deferred Abdomen: Normal Genitourinary Exam: Normal Extremities: Deferred DTRs: Deferred Pelvic Type: Adequate Vital Signs: Reviewed VAGINAL EXAM Dilatation: 3 Effacement: 50 Station: -2 MEMBRANES Membranes: Ruptured Amniotic Fluid Color: Clear FETUS A Monitoring: External US FHR- Baseline: 155 Variability: Moderate 6-25bpm Decelerations: None Presentation: Vertex Admit Comment: plans epidural PLANS FOR LABOR AND DELIVERY Labor and Delivery: Plan Pain Management: Epidural Feeding Preference: Breast Benefit of Breast Feed Discussed: Yes Circumcision: Yes INFORMED CONSENT Assignment: Barbie Lopez MD Signature: with User ID: [email or web address] : with User ID: [email or web address]
--- NOTE | 2017-02-07 08:39 | Delivery Summary ---
Del Sum A-C Datetime Report Generated by CPN: 02/07/2017 08:38 DELIVERY PERSONNEL DELIVERY PERSONNEL: [phone];[id number];[phone] Delivery Doctor:: Rand Hicks CNM Nurse Clinical Trials Manager Certified:: Mmia Deleon CNM Labor and Delivery Nurse:: Sai Guzman RNfinishing range supervisor Nurse:: Kezia Hayes RN Deputy Jailer/ROASTER HELPER: [facility] Additional Personnel: : Arsh Deleon CNM MATERNAL INFORMATION Delivery Anesthesia: Epidural Medications After Delivery: Pitocin Bolus-Please Comment Meds After Delivery Comment: 1000 mcg cytotec rectally Estimated Blood Loss (ml): 200 Maternal Complications: None Provider Comments: of viable male over intact perineum, head, shoulders, and body delivered without difficulty. Infant with spontaneous cry and respirations to maternal abdomen, cord clamped X2, infant cut free after 2 min. delay. Spontaneous delivery of intact placenta via correa, appears intact, 3 VC, hemostasis acheived with external fundal massage and IV pitocin. 1000 mcg rectal cytotec given prophylacticly. Vagina and perineum inspected, no lacerations noted, mother and in stable condition. LABOR SUMMARY EDC: 02/09/2017 00:00 No. Babies in Womb: 1 Attempted: No Labor Anesthesia: Epidural LABOR INFORMATION Reason for Induction: Not Applicable Onset of Labor: 01/31/2017 12:00 Complete Dilatation: 01/31/2017 20:15 Oxytocin: Augmentation Group B Beta Strep: Negative Antibiotics # of Doses: 0 Steroids Given: None Reason Steroids Not Administered: Not Applicable MEMBRANES Membranes Rupture Method: Spontaneous Rupture of Membranes: 01/31/2017 12:00 Length of Rupture (hr): 8.40 Amniotic Fluid Color: Clear Amniotic Fluid Amount: Small Amniotic Fluid Odor: Normal STAGES OF LABOR Stage 1 hr: 8 Stage 1 min: 15 Stage 2 hr: 0 Stage 2 min: 9 Stage 3 hr: 0 Stage 3 min: 5 Total Time in Labor hr: 8 Total Time in Labor min: 29 VAGINAL DELIVERY Episiotomy: None Laceration Extension: N/A Laceration Type: None Laceration Repair: Not Applicable Sponge Count Correct: N/A Sharps Count Correct: N/A CSECTION DELIVERY Primary Indication: N/A Secondary Indication: N/A CSection Incidence: N/A Labor: N/A Elective: N/A CSection Incision: N/A BABY A INFORMATION Delivery Date/Time: 01/31/2017 20:24 Method of Delivery: Vaginal Born in Route : No : N/A Forceps: N/A Vacuum Extraction: N/A Shoulder Dystocia : No PRESENTATION/POSITION BABY A Presentation: Cephalic Cephalic Presentation: Vertex Vertex Position: Left Occipital Posterior Breech Presentation: N/A PLACENTA INFORMATION BABY A Placenta Delivery Time : 01/31/2017 20:29 Placenta Method of Delivery: Spontaneous Placenta Status: Delivered SCORES BABY A Heart Rate 1 min: >100 bpm Resp Effort 1 min: Good Cry Reflex Irritability 1 min: Cough or Sneeze or Pulls Away Muscle Tone 1 min: Active Motion Color 1 min: Body [place], Extremities Blue Resuscitation Effort 1 min: N/A SCORE 1 MIN: 9 Heart Rate 5 min: >100 bpm Resp Effort 5 min: Good Cry Reflex Irritability 5 min: Cough or Sneeze or Pulls Away Muscle Tone 5 min: Active Motion Color 5 min: Body [place], Extremities Blue Resuscitation Effort 5 min: N/A SCORE 5 MIN: 9 INFANT INFORMATION BABY A Gestational Age at Delivery: 38.5 Gestational Status: Early Term- 37- 38.6 Weeks Outcome : Liveborn Infant Condition : Stable Infant Sex: Male IDENTIFICATION BABY A Infant Verification Date/Time: 01/31/2017 20:31 ID Band Number: [id number] Mother's Name Verified: Yes Infant RN Verifying Infant: R Maya, RNC Additional Verifying Personnel: Beba Justice, RN WEIGHT/LENGTH BABY A Birthweight (gm): 3380 Infant Weight (lb): 7 Infant Weight (oz): 7 Infant Length (in): 20.50 Length (cm): 52.07 CORD INFORMATION BABY A No. Cord Vessels: 3 Nuchal Cord : N/A Cord Blood Taken: Yes-For Eval (Mom's Blood Type - or O+) ASSESSMENT BABY A Infant Complications: None Physical Findings at Delivery: Puncture Wound from Scalp Electrode Respirations: Appears Normal Skin to Skin: Yes Skin to Skin Time (min): 60 Manager Client Support/ALS Called : No Infant Care By: Arpan Guzman, THAD Transferred To: Remains with Mother BABY B INFORMATION : N/A SIGNATURES Assignment: Barbie Lopez MD Signature: with User ID: [email or web address] : with User ID: [email or web address] : I was personally available for consultation and serving as supervising physician for the MLP.
--- NOTE | 2017-02-07 08:39 | Admission Physical ---
Datetime Report Generated by CPN: 02/07/2017 08:38 CURRENT ADMISSION Chief Complaint: Suspected Ruptured Membranes Indication for Induction: Not Applicable Admit Plan: Admit to Unit; Initiate Labor Protocol ALLERGIES Medication Allergies: No Medication Allergies: No Known Allergies (01/31/2017) Medication Allergies: No Known Allergies (12/03/2014) Latex: No Latex Allergies Food Allergies: none Environmental Allergies: none OBSTETRICAL HISTORY EDC: 02/09/2017 00:00 : 9 Para: 5 Term: 4 : 1 SAB: 3 IAB: 0 Ectopic: 0 Livin Cesareans: 0 VBACs: 0 Multiple Births: 1 Gestational Diabetes: No Rh Sensitization: No Incompetent Cervix: No AYAZ: No Infertility: No ART Treatment: No Uterine Anomaly: No IUGR: No Hx Previous C/S: No Macrosomia: No Hx Loss/Stillborn: No PIH: No Hx : No Placenta Previa/Abruption: No Depression/PP Depression: No PTL/PROM: No Post Hemorrhage: No Current Procedures: Ultrasound; NST Obstetrical History Comments: G1- 2006 G2- 2007 G3- SAB 2008 G4- SAB 2010 G5- 2010 G6- SAB 2011 G7- 2012 G8- 2014 G9- CURRENT SEE RECORDS Alcohol: No Marijuana : No Cocaine: No Other Illicit Drugs: No Cigarettes: Never Smoker. [id number] MEDICAL HISTORY Diabetes: No Blood Transfusion: Yes Pulmonary Disease (Asthma, TB): No Breast Disease: No Hypertension: No Supervisor Surgery: No Heart Disease: No Hosp/Surgery: Yes Autoimmune Disorder: No Anesthetic Complications: No Kidney Disease: No Abnormal Pap Smear: No Neuro/Epilepsy: No Psychiatric Disorders: No Other Medical Diseases: No Hepatitis/Liver Disease: No Significant Family History: No Varicosities/Phlebitis: No Trauma/Violence : No Thyroid Dysfunction: No Medical History Comments: childbirth; blood transfusion after twin delivery. INFECTIOUS HISTORY Gonorrhea: No Genital Herpes: No Chlamydia: No Tuberculosis: No Syphilis: No Hepatitis: No HIV/AIDS Exposure: No Rash or Viral Illness: No HPV: No PHYSICAL EXAM General: Normal HEENT: Deferred Neurologic: Normal Thyroid: Deferred Heart: Normal Lungs: Deferred Breast: Deferred Back: Deferred Abdomen: Normal Genitourinary Exam: Normal Extremities: Deferred DTRs: Deferred Pelvic Type: Adequate Vital Signs: Reviewed VAGINAL EXAM Dilatation: 3 Effacement: 50 Station: -2 MEMBRANES Membranes: Ruptured Amniotic Fluid Color: Clear FETUS A EGA: 38.5 Monitoring: External US FHR- Baseline: 155 Variability: Moderate 6-25bpm Decelerations: None Presentation: Vertex Admit Comment: plans epidural PLANS FOR LABOR AND DELIVERY Labor and Delivery: Plan Pain Management: Epidural Feeding Preference: Breast Benefit of Breast Feed Discussed: Yes Circumcision: Yes INFORMED CONSENT Assignment: Barbie Lopez MD Signature: with User ID: [email or web address] : with User ID: [email or web address]
== END 2017-02-02 13:30 | disposition home or self-care (01) | DRG 775 ==
LOC: LC 14:08 → LR 14:55 → 2S 02-01 00:15
PROVIDERS: ADMIT Obstetrics & Gynecology; ATTEND Obstetrics & Gynecology
PROC: 10E0XZZ Delivery of Products of Conception, External Approach (ICD-10-PCS; principal; 2017-01-31)
PROC: 4A1H7CZ Monitoring of Products of Conception, Cardiac Rate, Via Natural or Artificial Opening (ICD-10-PCS; 2017-01-31)
PROC: 10H073Z Insertion of Monitoring Electrode into Products of Conception, Via Natural or Artificial Opening (ICD-10-PCS; 2017-01-31)
DX: O80 Encounter for full-term uncomplicated delivery (principal); Z3A.38 38 weeks gestation of pregnancy; Z37.0 Single live birth
CPT/HCPCS: 36415; 80307; 81005; 85025; 85027; 86592; 86850; 86900; 86901; 94760; J2370; J2590; J3010; J3490